=== PATIENT | male | born 1960 | race Caucasian/White ===

== ENCOUNTER 2023-05-07 08:23 | Outpatient (OUT) | payer OTHER, SELFPAY ==
[2023-05-07 09:55] LABS: Prostate Specific Antigen Dx <0.13 ng/mL (<=4.00)
== END 2023-05-07 08:24 | disposition home or self-care (01) ==
LOC: LAB 08:27
PROVIDERS: PCP Internal Medicine
DX: C61 Malignant neoplasm of prostate (principal)
CPT/HCPCS: 36415; 84153

== ENCOUNTER 2023-08-24 07:02 | Outpatient (OUT) | payer OTHER, SELFPAY ==
--- NOTE | 2023-08-24 | CT_ITS ---
The [address] [address] Patient Name: BASSAM SIMONS MRN: [id number] date: 1960 Sex: M Assigned Patient Location: LAB Current Patient Location: LAB Accession/Order Number: [id number] Exam Date: 08/24/2023 07:22 Report Date: 08/24/2023 07:50 At the request of: VERN GABRIEL Procedure: CT abdomen pelvis wo con CT abdomen pelvis wo con, 08/24/2023 7:22 AM EST INDICATION: History of renal cell carcinoma Z85.528 COMPARISON: Prior CT of abdomen dated 03/24/2022 TECHNIQUE: Axial images of the abdomen were obtained before administration of IV contrast. Multiplanar reformatted images were generated and reviewed as needed. Dose reduction techniques were achieved by using automated exposure control and/or adjustment of mA and/or kV according to patient size and/or use of iterative reconstruction technique. FINDINGS: The study is limited due to lack of injection of contrast. Lungs: The base of lungs is clear. No pleural effusion is noted. Liver and gallbladder: The liver and gallbladder are unremarkable. No enlargement of intra or extrahepatic biliary ducts. Genitourinary system: There is status post left nephrectomy and adrenalectomy. No suspicious edge lesion in the surgical bed is noted. No hydronephrosis or nephrolithiasis in the right kidney. Right renal cyst is stable in size with focus of hyperdensity likely due to hemorrhage. No abnormality of the urinary bladder is noted. Other solid abdominal organs: Right adrenal gland, pancreas, and spleen are unremarkable. Aorta: The infrarenal abdominal aorta is nonaneurysmal. Free fluid: There is no free fluid in the abdomen pelvis. Lymph node: No lymph node enlargement by size criteria is noted. Stomach and Bowel: No abnormality of the stomach is noted. No abnormality of small or large bowel is noted. Stable ventral hernias containing fat. Bone: There is no suspicious osteolytic or osteoblastic lesion. Stable sclerotic lesions likely bone islands, the largest one within the right pubic tubercle. CT/CT abdomen pelvis wo con IMPRESSION: Stable post left nephrectomy. No evidence of recurrence or metastasis. No significant interval change. Electronically authenticated by: DARLENE MCINTOSH Date: 08/24/2023 07:50
[2023-08-24 07:27] LABS: Anion Gap 13.8; BUN Creatinine Ratio 23.4; Calcium 8.9 mg/dL (8.5-10.1); Carbon Dioxide 28.7 mmol/L (21.0-32.0); Chloride 103 mmol/L (98-107); Estimated GFR (African America >60 (>=60); Estimated GFR (Non-African Ame 51 (>=60); Glucose 97 mg/dL (74-106); Potassium 4.5 mmol/L (3.5-5.1); Sodium 141 mmol/L (136-145)
[2023-08-24 08:32] LABS: Prostate Specific Antigen Dx <0.13 ng/mL (<=4.00)
--- OUTSIDE RECORDS SUMMARY | 2023-09-29 17:33 | XMS_ITS | CCD ---
Author Name Unknown Address [address] [place] [address] Organization [facility] Care Team Providers Care Paraprofessional Aide Name Role Phone FERNANDO PATTERSON Primary Care Physician Fernando Patterson II Primary Care Provider Fernando Patterson II Primary Care Provider BEAULIEU ., DR PORRAS Attending Unavailable BEAULIEU ., DR PORRAS Consulting Unavailable BEAULIEU ., DR PORRAS Admitting Unavailable CAIO, DR JAVIER Primary Care Unavailable ENGELER, DR PARISA Zheng Admitting Unavailable ENGELER, DR PARISA Zheng Attending Unavailable CAIO, DR JAVIER Primary Care Unavailable BEAULIEU ., DR PORRAS Consulting Unavailable ENGELER, DR PARISA Zheng Consulting Unavailable BEAULIEU ., DR PORRAS Attending Unavailable BEAULIEU ., DR PORRAS Consulting Unavailable BEAULIEU ., DR PORRAS Admitting Unavailable CAIO, DR JAVIER Primary Care Unavailable RACHAEL SIU Consulting Unavailable EMERALD, DR PARISA Zheng Admitting Unavailable EMERALD, DR PARISA Zheng Attending Unavailable CAIO, DR JAVIER Primary Care Unavailable BEAULIEU ., DR PORRAS Consulting Unavailable BEAULIEU ., DR PORRAS Admitting Unavailable BEAULIEU ., DR PORRAS Attending Unavailable CAIO, DR JAVIER Primary Care Unavailable EMERALD, DR PARISA Zheng Consulting Unavailable ZIESTELA, DR MOY [place] Consulting Unavailable EMERALD, DR PARISA Zheng Admitting Unavailable EMERALD, DR PARISA Zheng Attending Unavailable CAIO, DR JAVIER Primary Care Unavailable EMERALD, DR PARISA Zheng Consulting Unavailable Jayden Oliveros Unavailable Jayden Oliveros Attending Unavailable Jayden Oliveros Admitting Unavailable Fernando Patterson Primary Care Unavailable Nathen CORBIN Referring Unavailable FERNANDO PATTERSON II Primary Care Unavailable Nathen CORBIN Attending Unavailable Nathen CORBIN Referring Unavailable FERNANDO PATTERSON II Primary Care Unavailable Nathen CORBIN Attending Unavailable Hal BEAULIEU Attending Unavailable Hal BEAULIEU Attending Unavailable Hal BEAULIEU Attending Unavailable Medications Current Medications Medication Drug Class(es) Dates Sig (Normalized) Sig (Original) aspirin 81 mg oral capsule (1 source) Platelet Aggregation Inhibitor, Nonsteroidal Anti-inflammatory Drug Start: 07-25-2022 take 1 capsule by mouth every four hours aspirin 81 mg oral capsule 81 mg = 1 cap(s), Oral, q4hr Start Date: 07/25/22 Status: Ordered ciprofloxacin 500 mg oral tablet (1 source) Quinolone Antimicrobial Start: 07-09-2021 take 1 tablet by mouth every twelve hours ciprofloxacin 500 mg Tab 500 mg = 1 tab(s), Oral, q12hr, Refills(s) 0 Start Date: 07/09/21 Status: Ordered Flonase Allergy Relief (3 sources) Flonase Allergy Relief Active Multi Vitamin+ (2 sources) Start: 12-28-2020 Multi Vitamin+ Refill(s) 0 Start Date: 12/28/20 Status: Ordered Multivitamin preparation (3 sources) take 1 tablet by mouth once daily Multivitamin - 1 tablet Orally Once a day Active Vitamin D3 (1 source) Start: 07-25-2022 Vitamin D3 Start Date: 07/25/22 Status: Ordered Completed/Discontinued Medications Medication Drug Class(es) Dates Sig (Normalized) Sig (Original) amoxicillin 875 mg oral tablet (1 source) Penicillin-class Antibacterial Start: 03-19-2018 take 1 tablet by mouth every twelve hours Amoxicillin 875 MG 1 tablet Orally every 12 hrs for 10 day(s) Mar, Not-Taking escitalopram 5 mg oral tablet (8 sources) Serotonin Reuptake Inhibitor Start: 07-09-2021 escitalopram oxalate (LEXAPRO) 5 mg tablet irbesartan 150 mg oral tablet (8 sources) Angiotensin 2 Receptor Toy Start: 07-24-2021 irbesartan (AVAPRO) 150 mg tablet Start: 07-01-2021 take 1 mg by mouth once daily irbesartan 75 mg Tab mg tab(s), Oral, Daily, Refills(s) 0 Start Date: 07/01/21 Status: Ordered predniSONE 20 mg oral tablet (1 source) Start: 03-19-2018 predniSONE 20 MG 1 tablet twice daily x 2 days then 1 tablet daily x 2 days Orally as directed for 4 days Mar, Not-Taking tamsulosin hydrochloride 0.4 mg oral capsule (8 sources) alpha-Adrenergi c Toy Start: 01-22-2021 take 0.4 mg by mouth twice daily tamsulosin (FLOMAX) 0.4 mg Take 0.4 mg by mouth twice daily. 0 01/22/2021 Active take 1 capsule by [facility] every twenty-four hours Tamsulosin HCl 0.4 MG 1 capsule Orally Once a day Active Comment on above: Take 0.4 mg by mouth twice daily. Problems Active Problems Problem Classification Problem Date Documented Da te Episodic/Chronic Cancer of kidney and renal pelvis (9 sources) Malignant tumor of kidney; Translations: [Malignant neoplasm of unspecified kidney, except renal pelvis] Onset: 01-15-2022 Chronic Cancer of prostate (10 sources) Malignant neoplasm of prostate; Translations: [Malignant tumor of prostate] Onset: 01-15-2022 Chronic Genitourinary symptoms and ill-defined conditions (6 sources) Nocturia; Translations: [Nocturia] Onset: 07-25-2022 07-01-2021 Episodic Hyperplasia of prostate (6 sources) Benign prostatic hypertrophy with outflow obstruction; Translations: [Benign prostatic hyperplasia with lower urinary tract symptoms] Onset: 01-15-2022 Chronic Other diseases of kidney and ureters (2 sources) Renal mass 07-01-2021 Chronic Other diseases of kidney and ureters (1 source) Urinary tract obstruction; Translations: [Other obstructive and reflux uropathy] Onset: 07-25-2022 Episodic Other diseases of veins and lymphatics (2 sources) Varicocele 07-01-2021 Episodic Other male genital disorders (2 sources) Spermatocele 07-01-2021 Episodic Phlebitis; thrombophlebitis and thromboembolism (2 sources) Deep venous thrombosis 12-10-2020 Episodic Residual codes; unclassified (2 sources) Family history of prostate cancer 07-01-2021 Episodic Unclassified (2 sources) Asymptomatic microscopic hematuria 07-01-2021 Unclassified (1 source) Varicose veins of bilateral lower extremities with pain; Translations: [Varicose veins of bilateral lower extremities with pain] Onset: 02-25-2023 Varicose veins of lower extremity (7 sources) Varicose veins of lower extremity; Translations: [Varicose veins of bilateral lower extremities with other complications] Episodic Past or Other Problems Problem Classification Problem Date Documented Da te Episodic/Chronic Other screening for suspected conditions (not mental disorders or infectious disease) (5 sources) Raised prostate specific antigen; Translations: [Elevated prostate specific antigen [PSA]] Onset: 07-15-2022 07-11-2022 Episodic Results Test Name Value Interpretation Reference Range Facil ity Ambulatory Visit Summaryon 1 11-26-2022 Ambulatory Visit Summary JOSE COBOS :1960 Visit Date:09/25/2023 Ambulatory Visit Instructions Your Diagnosis Prostate cancer History of renal cell carcinoma BPH with urinary obstruction Asymptomatic microscopic hematuria Tests Performed Urnls Dip Stick Auto w/o Microscopy POC [address]40 CT Abdomen/Pelvis w/o Contrast -- Results Pending -- XR Abdomen 1 View -- Results Pending -- Please visit your patient portal for your results or contact your primary care physician. Your Care Team Attending Physician - Hal BEAULIEU MD Primary Care Physician - FERNANDO PATTERSON MD This Is Your Medications List tamsulosin (tamsulosin 0.4 mg Cap) Contact prescribing physician if questions or concerns aspirin (aspirin 81 mg oral capsule) cholecalciferol (Vitamin D3) escitalopram (escitalopram 5 mg oral tablet) irbesartan (irbesartan 75 mg Tab) multivitamin (Multi Vitamin+) Procedures Performed Radiation (10/08/2021), Transrectal needle biopsy of prostate (07/09/2021), Radical nephrectomy (01/02/2021), Cystoscopy (12/25/2020), Colonoscopy, Hernia repair, Tonsillectomy. Discharge Vitals Heart Rate (Peripheral) 69 Respiratory Rate 16 Blood Pressure 130/81 Height 187 cm Height 74 in Weight 107.2 kg Weight 235.84 lb BMI 30.66 What to do next Scheduled Follow-Up Appointments Thursday 8:30 AM EST With: Hal BEAULIEU MD Where: [facility] Patient Educationon 09-25-20 23 Patient Education Urology Benign Prostatic Hyperplasia Benign prostatic hyperplasia (BPH) is an enlarged prostate gland that is caused by the normal aging process. The prostate may get bigger as a man gets older. The condition is not caused by cancer. The prostate is a walnut-sized gland that is involved in the production of semen. It is located in front of the rectum and below the bladder. The bladder stores urine. The urethra carries stored urine out of the body. An enlarged prostate can press on the urethra. This can make it harder to pass urine. The buildup of urine in the bladder can cause infection. Back pressure and infection may progress to bladder damage and kidney (renal) failure. What are the causes? This condition is part of the normal aging process. However, not all men develop problems from this condition. If the prostate enlarges away from the urethra, urine flow will not be blocked. If it enlarges toward the urethra and compresses it, there will be problems passing urine. What increases the risk? This condition is more likely to develop in men older than 50 years. What are the signs or symptoms? Symptoms of this condition include: ? Getting up often during the night to urinate. ? Needing to urinate frequently during the day. ? Difficulty starting urine flow. ? Decrease in size and strength of your urine stream. ? Leaking (dribbling) after urinating. ? Inability to pass urine. This needs immediate treatment. ? Inability to completely empty your bladder. ? Pain when you pass urine. This is more common if there is also an infection. ? Urinary tract infection (UTI). How is this diagnosed? This condition is diagnosed based on your medical history, a physical exam, and your symptoms. Tests will also be done, such as: ? A post-void bladder scan. This measures any amount of urine that may remain in your bladder after you finish urinating. ? A digital rectal exam. In a rectal exam, your health care provider checks your prostate by putting a lubricated, gloved finger into your rectum to feel the back of your prostate gland. This exam detects the size of your gland and any abnormal lumps or growths. ? An exam of your urine (urinalysis). ? A prostate specific antigen (PSA) screening. This is a blood test used to screen for prostate cancer. ? An ultrasound. This test uses sound waves to electronically produce a picture of your prostate gland. Your health care provider may refer you to a specialist in kidney and prostate diseases (urologist). How is this treated? Once symptoms begin, your health care provider will monitor your condition (active surveillance or watchful waiting). Treatment for this condition will depend on the severity of your condition. Treatment may include: ? Observation and yearly exams. This may be the only treatment needed if your condition and symptoms are mild. ? Medicines to relieve your symptoms, including: ? Medicines to shrink the prostate. ? Medicines to relax the muscle of the prostate. ? Surgery in severe cases. Surgery may include: ? Prostatectomy. In this procedure, the prostate tissue is removed completely through an open incision or with a laparoscope or robotics. ? Transurethral resection of the prostate (TURP). In this procedure, a tool is inserted through the opening at the tip of the penis (urethra). It is used to cut away tissue of the inner core of the prostate. The pieces are removed through the same opening of the penis. This removes the blockage. ? Transurethral incision (TUIP). In this procedure, small cuts are made in the prostate. This lessens the prostate's pressure on the urethra. ? Transurethral microwave thermotherapy (TUMT). This procedure uses microwaves to create heat. The heat destroys and removes a small amount of prostate tissue. ? Transurethral needle ablation (TUNA). This procedure uses radio frequencies to destroy and remove a small amount of prostate tissue. ? Interstitial laser coagulation (ILC). This procedure uses a laser to destroy and remove a small amount of prostate tissue. ? Transurethral electrovaporization (TUVP). This procedure uses electrodes to destroy and remove a small amount of prostate tissue. ? Prostatic urethral lift. This procedure inserts an implant to push the lobes of the prostate away from the urethra. Follow these instructions at home: ? Take [id number] and prescription medicines only as told by your health care provider. ? Monitor your symptoms for any changes. Contact your health care provider with any changes. ? Avoid drinking large amounts of liquid before going to bed or out in public. ? Avoid or reduce how much caffeine or alcohol you drink. ? Give yourself time when you urinate. ? Keep all follow-up visits. This is important. Contact a health care provider if: ? You have unexplained back pain. ? Your symptoms do not get better with treatment. ? You develop side effects from the medicine (more content not included)... Normal [facility] Reminderson 09-25-2023 Reminders - From: Gay Ponce To: JW Beaulieu; Sent: 09/25/2023 09:16:14 EST Show up: 07/26/2024 10:15:00 EDT Subject: CXR and CT AP wo Due Date/Time: 08/26/2024 09:15:00 EST Reminder Message Pt needs CT AP wo con and CXR due to hx of renal cell carcinoma prior to 1 year appointment. Imaging to be done at [facility]. Patient will not have insurance, he may want to got to [facility] imaging in [place] , fax Pt has PSA order Normal [facility] Urology Office/Clinic Noteon 09-25-2023 Urology Office/Clinic Note Chief Complaint BPH with urinary obstruction HPI Staff 6m CT BMP & PSA DX: Prostate Cancer, Hx of Renal Cell Carcinoma, BPH, Nocturia & Microscopic Hematuria S/P EBRT 07/09/21 & Last Lupron 08/2021 & S/P Left Radical Nephrectomy 01/02/21 *Tamsulosin 0.4mg decreased from BID to QHS at time of last encounter CT 08/24/23 BMP 08/24/23 *BUN 33.0 & Crea 1.[address] Corbin 05/13/23 PSA 05/07/23- <0.13 08/24/23- <0.13 Dysuria: no Incomplete bladder emptying: no Hematuria: no Frequency: no Urgency: no Nocturia: 2-3x Stream: good steady Leaking: rare and only if he has too wait too long Post void dripping: no Wearing pads/ Depends: no Urge incontinence: no Stress incontinence: no Incontinence without Sensory Awareness: no Abdominal pain: no Flank pain: no Sexual complaints: no History of Present Illness Tests reviewed: reviewed UA, PSA, CT, BMP I have reviewed the previous health record information and history for this patient from Dr. Beaulieu. I have reviewed and verified the staff HPI to be accurate for this encounter. There have been no associated fever, chills, flank pain, or blood in the urine. Denies any urinary infections since last encounter. Review of Systems PHQ Score Initial Depression Screen Score: 0 SCORE ROS - Provider Constitutional: denies weight loss, denies hot flashes. Eyes: denies eye problems. Gastrointestinal: denies nausea, denies vomiting. Cardiovascular: denies chest pain or angina. Integumentary: no dryness Musculoskeletal: denies musculoskeletal symptoms. ENMT: denies otolaryngeal symptoms. Respiratory: no shortness of breath. Heme/Lymph: denies easy bleeding tendency, denies easy bruising tendency. Psychiatric: no confusion, no anxiety. Genitourinary: See HPI. Physical Exam Vitals & Measurements HR: 69(Peripheral) RR: 16 BP: 130/81 HT: 74 in HT: 187 cm WT: 107.2 kg WT: 235.84 lb BMI: 30.66 General Appearance: alert, no distress, well nourished, well developed male. Genitourinary: normal scrotum, normal testes, normal urethra, normal epididymis, normal vas deferens/spermatic cord. Flank Pain: none. Bladder: nonpalpable. Assessment/Plan Pt here with today 1. Prostate cancer (C61: Malignant neoplasm of prostate) PSA: 11/06/21 - 0.05 05/12/22 - 0.13 07/15/22 - 0.15 11/03/22 - <0.13 02/04/23 - <0.13 05/07/23 - <0.13 08/24/23 - <0.13 TRUS/Bx 07/09/21 - G6(3+3) x 2 and G7 (3+4) x 2. Completed radiation with Dr. Corbin 10/08/21. Last saw oncology 05/13/23. Last Lupron 08/2021. PSA remains stable. Will continue to monitor. -PSA in 1 year 2. History of renal cell carcinoma (Z85.528: Personal history of other malignant neoplasm of kidney) 01/03/22 - BUN 32. Crea 1.50 03/24/22 - BUN 42. Crea 1.41 02/04/23 - BUN 34. Crea 1.58 08/24/23 - BUN 33, Crea 1.41 S/P Left Radical Nephrectomy 01/02/21. 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 Renal US done on 01/03/22 was negative. CXR 01/03/22 - No acute disease. CT AP w con 03/24/22 - No acute disease. CXR 02/04/23 [facility] - WNL. CT AP wo con 08/24/23 stable post left nephrectomy. No evidence of recurrence or metastasis. No significant interval change. -Repeat CT AP wo & CXR in 1 year 3. BPH with urinary obstruction (N40.1: Benign prostatic hyperplasia with lower urinary tract symptoms) UA today negative for blood and infection. Taking Flomax 0.4mg, directed to decrease to qd last visit. Has been taking before bed. Voiding well. Strong, steady stream. Nocturia 2-3x per night depending on what he drinks. 4. Asymptomatic microscopic hematuria (R31.21: Asymptomatic microscopic hematuria) Chronic. UA today shows small. No gross hematuria. Discussed possible radiation changes. Call w/ visible blood in urine. Follow-up With When Contact Information HARVEY FRASER, Hal Astorga, URL [address] [place], [place] [id number]- Additional Instructions: 1 year w/ CXR, CT AP wo con, PSA Patient Education Benign Prostatic Hyperplasia I, Gay Ponce, personally scribed for Dr. Beaulieu on 09/25/2023 09:10:28. . Documentation recorded by the scribe, Gay Ponce, accurately reflects the services(s) I performed and decisions made by me. Authenticated by Dr. Beaulieu on 09/25/2023 09:21:14. Problem List/Past Medical History Ongoing Asymptomatic microscopic hematuria BPH with urinary obstruction Deep vein thrombosis Elevated PSA Family history of prostate cancer History of renal cell carcinoma Nocturia Prostate cancer Renal cell carcinoma Renal mass Spermatocele Varicocele Historical No qualifying data Procedure/Surgical History Radiation (10/08/2021), Transrectal needle biopsy of prostate (07/09/2021), Radical nephrectomy (01/02/2021), Cystoscopy (12/25/2020), Colonoscopy, Hernia repair, Tonsillectomy. Medications aspirin 81 mg oral capsule, 81 mg= (more content not included)... Normal [facility] Comment on above: Result Comment: Elec tronically Signed By: Hal BEAULIEU MD\.br\Date and Time Signed: 09/25/23 09:21 EST\.br\Electronically Co-Signed By: Gay Ponce\Date and Time Co-Signed: 09/25/23 09:12 EST Lab Reportson 09-08-2023 Lab Reports [id number] FF [facility] RAD - CT Reporton 09-02-2023 RAD - CT Report [id number] Normal [facility] Pre-Certification Formon Pre-Certification Form [id number] Normal [facility] Lab Reportson 08-25-2023 Lab Reports [id number] IFF Normal [facility] Reminderson 08-10-2023 Reminders - From: Nadya Cleaning To: JW Beaulieu; Sent: 03/02/2023 10:26:08 EDT Show up: 07/12/2023 10:25:00 EDT Subject: Ct scan Due Date/Time: 08/03/2023 10:26:00 EDT Reminder/Recall Jenna- Patient needs Ct scan w/o contrast, bun/creatinine prior to 08/24/23 appt. Patient wants [facility] ALSO PSA, CMP lab orders Appt r/s to 09/25/23. Order and office notes faxed to [facility] to do prior auth and call pt to sched.LG From: Elza Rouse MA (JW - Kenny Beaulieu) To: JW Beaulieu; Sent: 08/10/2023 10:51:51 EDT Show up: 09/07/2023 07:00:00 EST Subject: RE: Ct scan Due Date/Time: 09/14/2023 07:00:00 EST Normal [facility] Consultation Noteon 05-25-20 Consultation Note [id number]:127 [facility] (RADT[facility] ) JOSE COBOS ([id number]) 1960 M Date Time Provider Department 05/13/23 10:30 AM Nathen CORBIN During your visit today, we recorded the following information about you: Temperature Pulse Respiration Blood pressure 96.9 degrees 62/minute 16/minute 116/82 Weight 105.2 kg Janette Mcwilliams LPN 05/13/2023 10:43 AM Signed AUA= 5 Nathen Corbin MD 05/13/2023 10:43 AM Signed Radiation Oncology - Follow Up Note PATIENT NAME: Jose Cobos PATIENT DIAGNOSIS: Prostate adenocarcinoma, initial PSA 3.69, biopsy Shelly score 3 + 4 = 7 (grade group 2), clinical stage T1c, N0, M0, stage IIB [T1-T2, N0, M0, PSA <20, GG 2] (AJCC 8th ed.), s/p TRUS Random biopsy. RADIATION SUMMARY:DATES OF TREATMENT: 08/28/21-10/08/21 AREA TREATED: Prostate and SV DELIVERED DOSE: Prostate and SV: 7,000 cGy in 28 fractions, 2 Arcs, IMRT, 10MV with daily CBCT TOTAL: 7,000 cGy in 28 fractions ELAPSED TIME: 41 days. INTERVAL HISTORY: Doing well. Feels his bladder function has improved considerably. He is down to 1 Flomax daily. Denies other new problems or concerns. 11/12/22:Doing well denies any new problems or concerns. He has had several episodes of bright red blood on toilet paper with bowel movement. Denies rectal pain. Usually after firm bowel movement. He did have colonoscopy last summer. PSA HISTORY: PSA (ng/mL) Date Value 07/26/2021 3.69 PSA. (no units) Date Value 05/07/2023 <0.13 11/03/2022 <0.13 05/12/2022 <0.13 11/06/2021 0.05 ALLERGIES No Known Allergies escitalopram oxalate (LEXAPRO) 5 mg tablet irbesartan (AVAPRO) 150 mg tablet tamsulosin (FLOMAX) 0.4 mg Take 0.4 mg by mouth once daily. REVIEW OF SYSTEMS: D/N = 4-5 Hematuria: none Dysuria: none Incontinence: none Urgency: mild Catheter use: none Medications to aid urination: flomax - Total AUA Score: 5 Bowel movement frequency: 1/day Bowel movement quality: normal Blood per rectum: none PHYSICAL EXAM: BP 116/82 Pulse 62 Temp 36.1 ?C (96.9 ?F) Resp 16 Wt 105.2 kg (232 lb) SpO2 96% BMI 28.55 kg/m? KPS: 100 General appearance: Alert and oriented. No acute distress. Rectal exam def Extremities: No deformities, edema, skin discoloration, clubbing or cyanosis. Lymph Nodes: No cervical lymphadenopathy, No supraclavicular lymphadenopathy, No axillary lymphadenopathy. Skin: Skin color, texture, turgor normal, no suspicious rashes or lesions. ASSESSMENT/PLAN: 1. Prostate adenocarcinoma, initial PSA 3.69, biopsy Bernard score 3 + 4 = 7 (grade group 2), clinical stage T1c, N0, M0, stage IIB [T1-T2, N0, M0, PSA <20, GG 2] (AJCC 8th ed.), s/p TRUS Random biopsy. Patient continues to do very well with undetectable PSA. Denies other new problems or concerns. Continues close follow-up with Dr. Beaulieu. 2. Renal cell carcinoma status post left radical nephrectomy December 2020. Doing well. Has continued follow-up with Dr. Beaulieu. Signed by: Nathen Corbin MD cc: Fernando Patterson II, MD [address] [place] [address] Referring Provider: Nathen CORBIN [[id number]] Allergies As of Date: 05/13/2023 (No Known Allergies) Date Reviewed: 05/13/2023 Reviewed by: Janette Mcwilliams LPN - Fully Assessed Primary Visit Diagnosis:Malignant neoplasm of prostate (HCC) [C61] Order(s):PSA (OUTSIDE) [[id number]] Order #: [id number] Prescriptions as of 05/13/2023 - escitalopram oxalate (LEXAPRO) 5 mg tablet - irbesartan (AVAPRO) 150 mg tablet - tamsulosin (FLOMAX) 0.4 mg Take 0.4 mg by mouth once daily. Problem List As Of Date: 05/13/2023 (None) Visit Notes: >> Janette Mcwilliams LPN ThuMay 13, 2023 10:27 AM Status: Signed AUA= 5 Disposition: Return in about 6 months (around 11/13/2023). Follow-up and Disposition History for Encounter Date Provider Department Center 05/13/2023 [id number]-IROTYRONathen [facility]BIN [facility] Encounter Status:Closed by Nathen CORBIN on 05/13/23 Normal [facility] Ambulatory Visit Summaryon 0 03-02-2023 Ambulatory Visit Summary JOSE COBOS :1960 Visit Date:03/02/2023 Ambulatory Visit Instructions Your Diagnosis Prostate cancer History of renal cell carcinoma BPH with urinary obstruction Nocturia Asymptomatic microscopic hematuria Tests Performed Urnls Dip Stick Auto w/o Microscopy POC [id number] Your Care Team Attending Physician - HARVEY FRASER, Hal Astorga Primary Care Physician - CAIO FRASER, FERNANDO Ivy This Is Your Medications List Contact prescribing physician if questions or concerns aspirin (aspirin 81 mg oral capsule) cholecalciferol (Vitamin D3) escitalopram (escitalopram 5 mg oral tablet) irbesartan (irbesartan 75 mg Tab) multivitamin (Multi Vitamin+) tamsulosin (tamsulosin 0.4 mg Cap) Procedures Performed Radiation (10/08/2021), Transrectal needle biopsy of prostate (07/09/2021), Radical nephrectomy (01/02/2021), Cystoscopy (12/25/2020), Colonoscopy, Hernia repair, Tonsillectomy. Discharge Vitals Heart Rate (Peripheral) 80 Respiratory Rate 16 Blood Pressure 138/85 Height 187 cm Height 74 in Weight 108 kg Weight 237.6 lb BMI 30.88 What to do next Scheduled Follow-Up Appointments Thursday 9:45 AM EST With: Hal BEAULIEU MD Where: [facility] Lenore Vazquez [facility] Patient Educationon 03-02-20 23 Patient Education Oncology Cancer Screening for Men A cancer screening is a test or exam that checks for cancer. Your health care provider will recommend specific cancer screenings based on your age, medical history (including risk factors), and family history of cancer. Work with your health care provider to create a cancer screening schedule that protects your health. Who should have screening? All men should be considered for screening of certain cancers, including colorectal cancer, prostate cancer, lung cancer, and skin cancer. Your health care provider may recommend screenings for other types of cancer if: ? You had cancer before. ? You have a family member with cancer. ? You have abnormal genes that could increase the risk of cancer. ? You have risk factors for certain cancers, such as current or past use of tobacco products, or being overweight. When you should be screened for cancer depends on: ? Your age. ? Your medical history and your family's medical history. ? Certain lifestyle factors, such as smoking or other use of tobacco products. ? Environmental exposure, such as to asbestos. How is screening done? Colorectal cancer All adults should have screenings starting at age 45 and continuing until age 75. Your health care provider may recommend screening before age 45. You will have tests every 1?10 years, depending on your results and the type of screening test. People at increased risk should start screening at an earlier age. Talk with your health care provider about which screening test is right for you and how often you should be screened. Colorectal cancer screening looks for cancer or for growths called polyps that often form before cancer starts. Tests to look for cancer or polyps include: ? Colonoscopy or flexible sigmoidoscopy. For these procedures, a flexible tube with a small camera is inserted into the rectum. ? CT colonography. This test uses X-rays and a contrast dye to check the colon for polyps. If a polyp is found, you may need to have a colonoscopy so the polyp can be located and removed. Tests to look for cancer in the stool (feces) include: ? Guaiac-based fecal occult blood test (FOBT). This test can find blood in stool. It can be done at home with a kit. ? Fecal immunochemical test (FIT). This test can find blood in stool. For this test, you will need to collect stool samples at home. ? Stool DNA test. This test looks for blood in stool and any changes in DNA that can lead to colon cancer. For this test, you will need to collect a stool sample at home and send it to a lab. Prostate cancer Prostate cancer screening for men with average risk may start at age 50. Men with risk factors may need to be screened earlier, at ages 40?45. Talk with your health care provider about whether screening is right for you and, if so, how often you should be screened. Prostate cancer screening is done with blood tests and a digital rectal exam. During this exam, a health care provider uses a gloved finger to check prostate size. You may need to be screened for prostate cancer if: ? You have risk factors for prostate cancer, such as being or having a close family member with prostate cancer. ? You have had gene changes or a genetic condition that was passed on to you from a parent (inherited). These gene changes or genetic conditions include BRCA1 or BRCA2 gene mutations or Oconnor syndrome. ? You have symptoms of prostate cancer, such as problems urinating or problems getting or keeping an erection (erectile dysfunction). When you have been screened for prostate cancer, future screening may be recommended based on the results of your blood tests. Lung cancer Lung cancer screening is done with a CT scan that looks for abnormal changes in the lungs. Discuss lung cancer screening with your health care provider if you are 50?80 years old and if any of the following apply to you: ? You currently smoke. ? You used to smoke heavily. ? You have a smoking history of 1 pack of cigarettes a day for 20 years or 2 packs a day for 10 years. ? You have quit smoking within the past 15 years. You may need to be screened every year if you smoke heavily or if you used to smoke. Skin cancer Skin cancer screening is done by checking the skin for unusual moles or spots and any changes in existing moles. Your health care provider should check your skin for signs of skin cancer at every physical exam. You should check your skin every month and tell your health care provider right away if anything looks unusual. Men with a dryods-yirm-ohzvfz risk for skin cancer may want to see a food safety specialist (business development engineer) for an annual body check. What are the benefits of screening? Cancer screening is done to look for cancer in the very early stages, before it spreads and becomes harder to treat and before you would start to notice symptoms. Finding cancer early improves the chances of successful treatment. It ma (more content not included)... Normal [facility] Urology Office/Clinic Noteon 03-02-2023 Urology Office/Clinic Note Chief Complaint 6 month with labs and CXR HPI Staff 6m PSA, BUN/Cr & CXR DX: Prostate Cancer, Renal Cell Carcinoma, BPH. Nocturia & Microscopic Hematuria. S/P Radiation completed 09/[address] Corbin & Lt Radical Nephrectomy done 01/02/21 *Tamsulosin 0.4mg BID therapy. PSA done 11/03/22- <0.13 02/04/23- PSA <0.13 BUN 34.0 Cr 1.58 CXR done 02/04/23 Dysuria: no Incomplete bladder emptying: no Hematuria: no Frequency: no Urgency: no Nocturia: 2-3 for quite a while. Stream: good stream no straining or intermittency Leaking: no Post void dripping: no Wearing pads/ Depends: no Urge incontinence: no Stress incontinence: no Incontinence without Sensory Awareness: no Abdominal pain: no Flank pain: no Sexual complaints: no History of Present Illness Tests reviewed: reviewed UA, XR, labs. I have reviewed the previous health record information and history for this patient from Dr. Beaulieu. I have reviewed and verified the staff HPI to be accurate for this encounter. There have been no associated fever, chills, flank pain, or blood in the urine. Denies any urinary infections since last encounter. Review of Systems PHQ Score Initial Depression Screen Score: 0 ROS - Provider Constitutional: denies weight loss, denies hot flashes. Eyes: denies eye problems. Gastrointestinal: denies nausea, denies vomiting. Cardiovascular: denies chest pain or angina. Integumentary: no dryness Musculoskeletal: denies musculoskeletal symptoms. ENMT: denies otolaryngeal symptoms. Respiratory: no shortness of breath. Heme/Lymph: denies easy bleeding tendency, denies easy bruising tendency. Psychiatric: no confusion, no anxiety. Genitourinary: See HPI. Physical Exam Vitals & Measurements HR: 80(Peripheral) RR: 16 BP: 138/85 HT: 74 in HT: 187 cm WT: 108 kg WT: 237.6 lb BMI: 30.88 General Appearance: alert, no distress, well nourished, well developed male. Genitourinary: normal scrotum, normal testes, normal urethra, normal epididymis, normal vas deferens/spermatic cord. Flank Pain: none. Bladder: nonpalpable. Assessment/Plan Pt here with his today. 1. Prostate cancer (C61: Malignant neoplasm of prostate) PSA: 05/12/22 - 0.13 07/15/22 - 0.15 11/03/22 - <0.13 02/04/23 - <0.13 TRUS/Bx 07/09/21 - G6(3+3) x 2 and G7 (3+4) x 2. Completed radiation with Dr. Corbin 10/08/21. Last Lupron 08/2021. PSA remains stable. Will continue to monitor. -PSA in 6 mos. 2. History of renal cell carcinoma (Z85.528: Personal history of other malignant neoplasm of kidney) 01/03/22 - BUN 32. Cre 1.50. 03/24/22 - BUN 42. Cre 1.41. 02/04/23 - BUN 34. Cre 1.58. S/P Left Radical Nephrectomy 01/02/21. 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 Renal US done on 01/03/22 was negative. CXR 01/03/22 - No acute disease. CT AP w con 03/24/22 - No acute disease. CXR 02/04/23 [facility] - WNL. Reviewed XR and labs with pt. Pt wants to get CT scan before the end of the year when he switches insurance. Will get CT without con due to recent renal fxn levels. Follow up Aug [address] AP without con or sooner if needed. Pt understands and agrees with plan. 3. BPH with urinary obstruction (N40.1: Benign prostatic hyperplasia with lower urinary tract symptoms) UA today negative for blood and infection. Taking Tamsulosin 0.4 mg bid. Voiding well. Discussed decreasing Flomax to qd. -Decrease Flomax from bid to qhs. 4. Nocturia (R35.1: Nocturia) Improved. Now going about q4hr during the night when previously he was waking q2hr. 5. Asymptomatic microscopic hematuria (R31.21: Asymptomatic microscopic hematuria) Chronic. UA today shows trace-intact. No gross hematuria. Follow-up With When Contact Information Hal BEAULIEU MD, URL [facility] [address] [place] [address]- Additional Instructions: 6 mos PSA, CT, BMP Patient Education Cancer Screening for Men I, Joceline Berumen, personally scribed for Dr. Beaulieu on 03/02/2023 10:23:42. . Documentation recorded by the scribe, Joceline Berumen, accurately reflects the services(s) I performed and decisions made by me. Authenticated by Dr. Beaulieu on 03/02/2023 10:25:07. Problem List/Past Medical History Ongoing Asymptomatic microscopic hematuria BPH with urinary obstruction Deep vein thrombosis Elevated PSA Family history of prostate cancer History of renal cell carcinoma Nocturia Prostate cancer Renal cell carcinoma Renal mass Spermatocele Varicocele Historical No qualifying data Procedure/Surgical History Radiation (10/08/2021), Transrectal needle biopsy of prostate (07/09/2021), Radical nephrectomy (01/02/2021), Cystoscopy (12/25/2020), Colonoscopy, Hernia repair, Tonsillectomy. Medications aspirin 81 mg oral capsule, 81 mg= 1 cap(s), Oral, q4hr escitalopram 5 mg oral tablet, 5 mg= 1 tab(s), Oral, Daily irbesartan 75 mg (more content not included)... Normal [facility] Comment on above: Result Comment: Elec tronically Signed By: Hal BEAULIEU MD\.br\Date and Time Signed: 03/02/23 10:25 EDT\.br\Electronically Co-Signed By: Joceline Berumen\.br\Date and Time Co-Signed: 03/02/23 10:24 EDT US venous duplex MIRELA Abraham US venous duplex LE JACK [facility] Main [address] [address] Ultrasound Report Signed Patient: Jose Cobos MR#: [id number] : 1960 Acct:[id number] Age/Sex: 62 / M ADM Date: 02/25/23 Loc: Room: Type: [facility] Attending Dr: Jayden Oliveros MD Ordering Provider: Jayden Oliveros MD Date of Service: 02/25/23 US/US venous duplex LE BI: I83.813 Copies to: Jayden Oliveros MD BILATERAL LOWER EXTREMITY VENOUS DUPLEX INDICATION: Symptomatic varicose veins, bleeding varicose veins near left ankle. PROCEDURE: Color-flow duplex scanning is used to interrogate the deep venous system of the right and left lower extremities. The common femoral vein, femoral vein and popliteal vein show good compressibility with normal proximal and distal augmentation. The calf veins are compressible. US/US venous duplex LE BI IMPRESSION: NO EVIDENCE FOR DEEP VEIN THROMBOSIS OR PROXIMAL SUPERFICIAL THROMBOPHLEBITIS IN THE RIGHT OR LEFT LOWER EXTREMITY. No reflux was identified in the deep or superficial system, bilaterally. The greater saphenous vein was patent bilaterally from the groin to the ankle. Large perforators were identified, bilaterally. Impression dictated by: Bobby Anders MD02/27/2023 3:45 PM Dictation Location: [place] [address] Tech: Kandice Duncan Transcribed By: [facility] 02/27/23 1545 Dictated By: Bobby Anders MD 02/27/23 1544 Signed By: 02/27/23 1545 [facility] Lab Reportson 02-05-2023 Lab Reports [id number] D:127 [facility] BUNon 02-04-2023 Urea nitrogen [Mass/Vol] 34.0 mg/dL Critically high 7.0-18 .0 [facility] Comment on above: Performed By: #### B PAULA COX #### [facility] [address] [place] [address] Dr. Melvin Holliday CREATININEon 02-04-2023 Creatinine [Mass/Vol] 1.58 mg/dL Critically high 0.70-1.30 [facility] Comment on above: Performed By: #### B PAULA COX #### [facility] [address] [address] [address] Melvin Holliday EGFR-AF INDIAN 54 mL/min/1.73m2 Critically low >=60 [facility] Comment on above: Performed By: #### B UN, CREA #### [facility] [address] [place] [address] [address] Melvin Holliday EGFR-NON AF INDIAN 45 mL/min/1.73m2 Critically low >=60 [facility] Comment on above: Performed By: #### B UN, CREA #### [facility] [address] [address] [address] Melvin Holliday RAD - MISCon 02-04-2023 RAD - MISC [id number] :127 [facility] Physician Orderon 01-01-2023 Physician Order [id number]:127 [facility] Provider Letteron 12-31-2022 Provider Letter (Inserted Image. Loan ble to display) December 31, 20[address] CO[address]OS [address] [place] [id number] JOSE COBOS 1960 Dear Jose, We have been trying to reach you with no success. You have an appointment with Dr Beaulieu on 02/06/2023 which will need to be rescheduled since he/she will be out of the office that day. Please contact the office at the number listed below to get this appointment rescheduled at your earliest convenience. Thank you for your prompt attention to this matter. Sincerely, [facility] [address] [facility], [place] [address] [facility] Consultation Noteon 11-14-19 Consultation Note [id number]:127 [facility] CNOVon 11-12-2022 CNOV Office Visit (RADTSA ) JOSE COBOS ([id number]) 1960 M Date Time Provider Department 11/12/22 10:00 AM Nathen CORBIN During your visit today, we recorded the following information about you: Temperature Pulse Respiration Blood pressure 97.9 degrees 79/minute 16/minute 126/82 Weight 108.4 kg Nathen Corbin MD 11/12/2022 10:21 AM Signed Radiation Oncology - Follow Up Note PATIENT NAME: Jose Cobos PATIENT DIAGNOSIS: Prostate adenocarcinoma, initial PSA 3.69, biopsy Bernard score 3 + 4 = 7 (grade group 2), clinical stage T1c, N0, M0, stage IIB [T1-T2, N0, M0, PSA <20, GG 2] (AJCC 8th ed.), s/p TRUS Random biopsy. RADIATION SUMMARY:DATES OF TREATMENT: 08/28/21-10/08/21 AREA TREATED: Prostate and SV DELIVERED DOSE: Prostate and SV: 7,000 cGy in 28 fractions, 2 Arcs, IMRT, 10MV with daily CBCT TOTAL: 7,000 cGy in 28 fractions ELAPSED TIME: 41 days. INTERVAL HISTORY: Doing well denies any new problems or concerns. He has had several episodes of bright red blood on toilet paper with bowel movement. Denies rectal pain. Usually after firm bowel movement. He did have colonoscopy last summer. PSA HISTORY: PSA (ng/mL) Date Value 07/26/2021 3.69 PSA. (no units) Date Value 11/03/2022 <0.13 05/12/2022 <0.13 11/06/2021 0.05 ALLERGIES No Known Allergies escitalopram oxalate (LEXAPRO) 5 mg tablet irbesartan (AVAPRO) 150 mg tablet tamsulosin (FLOMAX) 0.4 mg Take 0.4 mg by mouth twice daily. REVIEW OF SYSTEMS: D/N = 4-02/09 Hematuria: none Dysuria: none Incontinence: none Urgency: mild Catheter use: none Medications to aid urination: flomax - Total AUA Score: 7 Bowel movement frequency: 1/day Bowel movement quality: normal Blood per rectum: none PHYSICAL EXAM: BP 126/82 Pulse 79 Temp 36.6 ?C (97.9 ?F) Resp 16 Wt 108.4 kg (239 lb) SpO2 97% BMI 29.41 kg/m? KPS: 100 General appearance: Alert and oriented. No acute distress. Abdomen: Normal abdominal exam, Abdomen soft, non-tender. No masses, organomegaly. Rectal exam def Extremities: No deformities, edema, skin discoloration, clubbing or cyanosis. Lymph Nodes: No cervical lymphadenopathy, No supraclavicular lymphadenopathy, No axillary lymphadenopathy. Skin: Skin color, texture, turgor normal, no suspicious rashes or lesions. ASSESSMENT/PLAN: 1. Prostate adenocarcinoma, initial PSA 3.69, biopsy Shelly score 3 + 4 = 7 (grade group 2), clinical stage T1c, N0, M0, stage IIB [T1-T2, N0, M0, PSA <20, GG 2] (AJCC 8th ed.), s/p TRUS Random biopsy. Doing well with undetectable PSA. He has had some very minimal rectal bleeding likely posttreatment related. He has had previous colonoscopy within the last year that was unremarkable. Should this continue consider reevaluation. Should it worsen consider cortisone suppositories. 2. Renal cell carcinoma status post left radical nephrectomy December 2020. Doing well. Has follow-up with urology. Signed by: Nathen Corbin MD cc: Fernando Patterson II, MD [address] [place] [address] Dr.Waters Janette Mcwilliams LPN 11/12/2022 10:21 AM Signed AUA=7 Referring Provider: Nathen CORBIN [[id number]] Allergies As of Date: 11/12/2022 (No Known Allergies) Date Reviewed: 11/12/2022 Reviewed by: Janette Mcwilliams LPN - Fully Assessed Reason for Visit: Prostate Cancer [590] Primary Visit Diagnosis:Malignant neoplasm of prostate (HCC) [C61] Order(s):PSA (OUTSIDE) [[id number]] Order #: [id number] PSA/PROSTSPECAG DIAG [SQPSA] Order #: [id number] FUTURE Prescriptions as of 11/12/2022 - escitalopram oxalate (LEXAPRO) 5 mg tablet - irbesartan (AVAPRO) 150 mg tablet - tamsulosin (FLOMAX) 0.4 mg Take 0.4 mg by mouth twice daily. Problem List As Of Date: 11/12/2022 (None) Visit Notes: >> Janette Mcwilliams, LUMBER DRIVER Wed Nov 12, 2022 10:00 AM Status: Signed AUA=7 Disposition: Return in about 6 months (around 05/12/2023). Follow-up and Disposition History for Encounter Date Provider Department Center 11/12/2022 [id number] CORBIN NATHALIE VALLEJO Encounter Status:Closed by Nathen CORBIN on 11/12/22 Normal [facility] Lab Reportson 11-07-2022 Lab Reports [id number] D:127 Normal [facility] PSA, FREE AND TOTAL RATIOon 07-18-2022 % Free PSA UPTCAL Normal [facility]spital Comment on above: Result Comment: Unab le to calculate result since non-numeric result obtained for component test. The table below lists the probability of prostate cancer for men with non-suspicious CHRISTY results and total PSA between 4 and 10 ng/mL, by patient age (Ro et al, KINJAL 1998, 279:1542). % Free PSA 50-64 yr 65-75 yr 0.00-10.00% 56% 55% 10.01-15.00% 24% 35% 15.01-20.00% 17% 23% 20.01-25.00% 10% 20% >25.00% 5% 9% Please note: Ro et al did not make specific recommendations regarding the use of percent free PSA for any other population of men. Performed By: #### P SAFREE ####[facility] [address], [place] [address]AvPoornima Holliday Prostate specific Ag [Mass/Vol] ng/mL Normal 0.0- 4.0 [facility] Comment on above: Result Comment: Aisha VILLASENOR methodology. . According to the [place] [employer], Serum PSA should decrease and remain at undetectable levels after radical prostatectomy. The AUA defines biochemical recurrence as an initial PSA value 0.2 ng/mL or greater followed by a subsequent confirmatory PSA value 0.2 ng/mL or greater. Values obtained with different assay methods or kits cannot be used interchangeably. Results cannot be interpreted as absolute evidence of the presence or absence of malignant disease. Performed By: #### P SAFREE ####[facility] [id number] [place] [address]Dr. Melvin Holliday PSA, Free <0.01 Normal N/A [facility]spital Comment on above: Result Comment: Aisha lam ECLIA methodology. Performed By: #### P SAFREE ####[facility] [address] [place] [address]Dr. Melvin Holliday BUNon 03-24-2022 Urea nitrogen [Mass/Vol] 42.0 mg/dL Critically high 7.0-18 .0 [facility] Comment on above: Performed By: #### C BILLY BUN #### [facility] [address] [place] [address] Dr. Melvin Holliday CREATININEon 03-24-2022 Creatinine [Mass/Vol] 1.41 mg/dL Critically high 0.70-1.30 [facility] Comment on above: Performed By: #### C BILLY, BUN #### [facility] [address] [place] [address] Dr. Melvin Holliday EGFR-AF INDIAN >60 Normal >=60 [facility] Comment on above: Performed By: #### C BILLY, BUN #### [facility] [address] [place] [address] Dr. Melvin Holliday EGFR-NON AF INDIAN 51 mL/min/1.73m2 Critically low >=60 [facility] Comment on above: Performed By: #### C BILLY, BUN #### [facility] [address] [place] [address] ABD/PELV W CONon 03-24-20 CT ABD/PELV W CON EXAMINATION: CT ABD/ PELV W CON HISTORY: Disorder of kidney and/or ureter ; history of left kidney cancer and nephrectomy; prostate cancer COMPARISON: CT abdomen pelvis 07/11/2021 TECHNIQUE: Axial, Coronal, and Sagittal images were created with IV contrast. Dose reduction techniques were achieved by using automated exposure control and/or adjustment of mA and/or kV according to patient size and/or use of iterative reconstruction technique. FINDINGS: LUNG BASES: No visible pulmonary or pleural disease. LIVER: No enlargement, atrophy, suspicious density, or significant focal lesion. BILIARY: No dilatation or calcification. PANCREAS: No lesion, fluid collection, or abnormal duct dilatation. SPLEEN: No enlargement or focal lesion. ADRENALS: Absent left adrenal gland. KIDNEYS: Left nephrectomy; no mass or abnormal lymph nodes within the renal fossa. Stable 2.3 cm right renal cyst. BOWEL/MESENTERY: No visible mass, obstruction, or bowel wall thickening. AORTA/VASCULAR: No aneurysm or dissection. RETROPERITONEUM: No mass or adenopathy. LYMPH NODES: No adenopathy. URINARY BLADDER: No visible focal wall thickening, lesion, or calculus. PELVIC ORGANS: Slightly prominent, but homogeneous appearance of the prostate. ABDOMINAL WALL: Small fat filled inguinal hernias bilaterally without strangulation. Tiny fat filled umbilical hernia without strangulation. Multiple supraumbilical ventral hernias containing fat, largest is 7.0 cm; no appreciable strangulation or bowel involvement. BONES: Stable sclerotic lesion versus bone island within the left superior pubic ramus. A few tiny dense foci scattered within the pelvis and proximal femurs, nonspecific but favoring bone islands. OTHER: Negative. IMPRESSION: 1. Prior left nephrectomy without evidence of recurrent or metastatic disease. 2. Several abdominal wall and bilateral inguinal fat filled hernias without strangulation or bowel involvement. 3. Stable scattered sclerotic lesions most suggestive of benign bone islands; unchanged since at least 12/27/2020. Electronically authenticated by: MOY ARAIZA Date: 2022-03-24 15:54 Normal [facility] XR CHEST 2 03-24-2022 XR CHEST 2 V EXAMINATION: XR CHES T 2 V HISTORY: Primary malignant neoplasm of kidney , shortness of breath COMPARISON: XR chest 01/03/2022 FINDINGS: LUNGS: No significant pulmonary parenchymal abnormalities. VASCULATURE: No increased pulmonary vasculature. PLEURA: No pneumothorax, effusion, or pleural thickening. CARDIAC: No cardiomegaly or cardiac silhouette abnormality. MEDIASTINUM: No visible mass or adenopathy. BONES: No fracture or visible bone lesion. OTHER: Negative. IMPRESSION: 1. No acute cardiopulmonary process or appreciable mass. Electronically authenticated by: MOY ARAIZA Date: 2022-03-24 08:07 Normal [facility] Complete Blood Count with Au to Diffon 10-07-2021 Basophils (Bld) [#/Vol] 0.02 10*3/uL Normal 0.00-0.20 [facility] Specialist Comment on above: Performed By: #### C AMBROSE, CMP #### [facility] [address], [place] [id number] Basophils/100 WBC (Bld) 0.4 % Normal N [facility] Specialist Comment on above: Performed By: #### C AMBROSE, CMP #### [facility] [address], [place] [id number] Eosinophils (Bld) [#/Vol] 0.17 10*3/uL Normal 0.02-0.5 0 [facility] Specialist Comment on above: Performed By: #### C AMBROSE, CMP #### [facility] [address], [place] [id number] Eosinophils/100 WBC (Bld) 3.3 % Normal [facility] Specialist Comment on above: Performed By: #### C AMBROSE, CMP #### [facility] [address], [place] [id number] Erythrocyte distribution wid th (RBC) [Ratio] 13.4 % Normal 11.0-15.0 [facility] dicde Specialist Comment on above: Performed By: #### C AMBROSE, CMP #### [facility] [address], [place] [id number] Hematocrit (Bld) [Volume fraction] 38.6 % Normal 38.5-50.0 [facility] dicde Specialist Comment on above: Performed By: #### C BCAD, CMP #### [facility] [address], [place] [id number] Hemoglobin (Bld) [Mass/Vol] 12.4 g/dL Low 13.0-17. 1 [facility] Specialist Comment on above: Performed By: #### C BCANikhil, CMP #### [facility] [address], [place] [id number] Lymphocytes (Bld) [#/Vol] 0.8 10*3/uL Low 0.9-3.9 [facility] Comment on above: Performed By: #### C BCANikhil, CMP #### [facility] [address], [place] [id number] Lymphocytes/100 WBC (Bld) 16.1 % Normal [facility] [place] Comment on above: Performed By: #### C AMBROSE, CMP #### [facility] [address], [place] [id number] MCH (RBC) [Entitic mass] 29.2 pg Normal 27.0-33.0 [facility] Comment on above: Performed By: #### C AMBROSE, CMP #### [facility] [address], [place] [id number] MCHC (RBC) [Mass/Vol] 32.1 g/dL Normal 32.0-36.0 [facility] Comment on above: Performed By: #### C AMBROSE, CMP #### [facility] [address], [place] [id number] MCV (RBC) [Entitic vol] 91 fL Normal 80-[address] [facility] Specialist Comment on above: Performed By: #### C AMBROSE, CMP #### [facility] [address], [place] [id number] Monocytes (Bld) [#/Vol] 0.4 10*3/uL Normal 0.2-0.9 [facility] Specialist Comment on above: Performed By: #### C BCANikhil, CMP #### [facility] [address], [place] [id number] Monocytes/100 WBC (Bld) 7.2 % Normal [facility] Specialist Comment on above: Performed By: #### C BCAD, CMP #### [facility] [address], [place] [id number] Neutrophils (Bld) [#/Vol] 3.7 10*3/uL Normal 1.5-7.8 [facility] Specialist Comment on above: Performed By: #### C BCANikhil, CMP #### [facility] [address], [place] [id number] Neutrophils/100 WBC (Bld) 72.0 % Normal [facility] Specialist Comment on above: Performed By: #### C BCAD, CMP #### [facility] [address], [place] [id number] Platelet mean volume (Bld) [Entitic vol] 9.20 fL Normal 7.50-12.50 [facility] Specialist Comment on above: Performed By: #### C AMBROSE, CMP #### [facility] [address], [place] [id number] Platelets (Bld) [#/Vol] 168 10*3/uL Normal 140-400 [facility] Specialist Comment on above: Performed By: #### C AMBROSE, CMP #### [facility] [address], [place] [id number] RBC (Bld) [#/Vol] 4.24 10*6/uL Normal 4.20-5.80 [facility] Specialist Comment on above: Performed By: #### C BCANikhil, CMP #### [facility] [address], [place] [id number] RDW-SD 44.7 fL Normal 37.0-50.0 [facility] Specialist Comment on above: Performed By: #### C AMBROSE, CMP #### [facility] [address], [place] [id number] WBC (Bld) [#/Vol] 5.2 10*3/uL Normal 3.8-11.0 [facility] Marine [employer]argo Inspector Comment on above: Performed By: #### C BCAD, CMP #### [facility] [address], [place] [id number] Comprehensive Metabolic Pane [facility] 10-07-2021 Albumin [Mass/Vol] 4.1 g/dL Normal 3.6-5.1 [facility] Specialist Comment on above: Performed By: #### C BCAD, CMP #### [facility] [address], [place] [id number] Albumin/Globulin [Mass ratio] 1.6 {ratio} Normal 1.0-2 .5 [facility] Specialist Comment on above: Performed By: #### C BCAD, CMP #### [facility] [address] [place], [place] [id number] ALP [Catalytic activity/Vol] 83 U/L Normal 40-129 [facility] [place] Comment on above: Performed By: #### C BCAD, CMP #### [facility] [address] [place], [place] [id number] ALT [Catalytic activity/Vol] 17 U/L Normal 9-46 [facility] Comment on above: Result Comment: 09/11 Female reference range changed. Performed By: #### C BCAD, CMP #### [facility] [address] [place], [place] [id number] Anion gap [Moles/Vol] 16 mmol/L Normal 12-20 [facility] Comment on above: Result Comment: Effe ctive 10/17/2019 reference range changed. Performed By: #### C BCAD, CMP #### [facility] [address] [place], [place] [id number] AST [Catalytic activity/Vol] 16 U/L Normal 10-40 [facility] [place] Comment on above: Performed By: #### C BCAD, CMP #### [facility] [address] [facility] [place] [place] [id number] BUN/CREA 19 Ratio Normal 6-22 [facility] [place] Comment on above: Performed By: #### C BCAD, CMP #### [facility] [address] [facility] [place] [place] [id number] Calcium [Mass/Vol] 9.7 mg/dL Normal 8.6-10.2 [facility] Comment on above: Performed By: #### C BCAD, CMP #### [facility] [address] [place], [place] [id number] Chloride [Moles/Vol] 102 mmol/L Normal 98-107 [facility] [place] [facility] Comment on above: Performed By: #### C BCAD, CMP #### [facility] [address] [place], [place] [id number] CO2 [Moles/Vol] 24 mmol/L Normal 20-31 [facility] [place] Comment on above: Performed By: #### C BCAD, CMP #### [facility] [address], [place] [id number] Creatinine [Mass/Vol] 1.3 mg/dL Normal 0.7-1.[address] [facility] Marine Cargo Inspector Comment on above: Performed By: #### C BCAD, CMP #### [facility] [address], [place] [id number] eGFRAA 66 mL/min/1.73m2 Normal >60 [facility] Specialist Comment on above: Performed By: #### C BCAD, CMP #### [facility] [address], [place] [id number] eGFRNAA 55 mL/min/1.73m2 Low >60 [facility] Marine Cargo Inspector Comment on above: Performed By: #### C BCAD, CMP #### [facility] [address], [place] [id number] Globulin (S) [Mass/Vol] 2.6 g/dL Normal 1.9-3.7 N [facility] Marine Cargo Inspector Comment on above: Performed By: #### C BCAD, CMP #### [facility] [address], [place] [id number] Glucose [Mass/Vol] 153 mg/dL High 65-99 Errol capone [place] [employer] Inspector Comment on above: Result Comment: For FASTING Glucose --- ADA reference ranges: Normal 65-99 mg/dl Prediabetes 100-125 Diabetes >/= 126 Performed By: #### C BCAD, CMP #### [facility] [address], [place] [id number] Potassium [Moles/Vol] 4.3 mmol/L Normal 3.5-5.5 [facility] Marine Cargo Inspector Comment on above: Performed By: #### C BCAD, CMP #### [facility] [address], [place] [id number] Protein [Mass/Vol] 6.7 g/dL Normal 6.1-8.1 Errol capone [place] [employer] Inspector Comment on above: Performed By: #### C BCAD, CMP #### [facility] [address], [place] [id number] Sodium [Moles/Vol] 138 mmol/L Normal 135-146 Errol capone [place] [employer] C[employer] Inspector Comment on above: Performed By: #### C BCAD, CMP #### [facility] [address], [place] [id number] TBIL <0.3 Normal [facility] Marine [employer] Inspector Comment on above: Performed By: #### C BCAD, CMP #### [facility] [address], [place] [id number] Urea nitrogen [Mass/Vol] 25 mg/dL Normal 7-25 [facility] Marine Cargo Inspector Comment on above: Performed By: #### C BCAD, CMP #### [facility] [address], [place] [id number] SURGICAL PATH REPORTon 01-09 SURGICAL PATH REPORT [facility] Department of Pathology [address] [place] [id number] Name: JOSE COBOS : 1960 [facility] [id number] Number: Gender: Male Location: [facility] Admit 60 years Attending HAL BEAULIEU Age: Provider: Ordering HAL BEAULIEU Provider: Consulting: Surgical Pathology Report ACCESSION: COLLECTED DATE/TIME: RECEIVED DATE/TIME: PATHOLOGIST: [id number] 01/02/2021 16:30 EDT 01/03/2021 12:19 EDT VINCE FRASER, LA NENA MOORE Final Diagnosis Report for [facility] [place] (A) LEFT KIDNEY, RADICAL NEPHRECTOMY: - CLEAR CELL RENAL CELL CARCINOMA, WHO / ISUP GRADE 3. Immunohistochemical stains are as follows: CD10: Positive in neoplasm CD117: Negative in neoplasm CK7: Positive in neoplasm, patchy PAX-8: Positive in neoplasm RCC: Positive in neoplasm Vimentin: Positive in neoplasm (B) PERIHILAR LYMPH NODE, EXCISION: - ONE (1) LYMPH NODE, NEGATIVE FOR METASTASIS. CANCER CASE SUMMARY Procedure Radical nephrectomy Specimen Laterality Left Tumor Site Lower pole Tumor Size Print Date01/09/2021 10:02 EDT Number: Time: [facility] Department of Pathology [address] [place] [id number] Name: JOSE COBOS : 1960 [employer] [id number] Number: Gender: Male Location: [facility] Admit 60 years Attending HAL BEAULIEU Age: Provider: Ordering HAL BEAULIEU Provider: Consulting: Surgical Pathology Report ACCESSION: COLLECTED DATE/TIME: RECEIVED DATE/TIME: PATHOLOGIST: [id number] 01/02/2021 16:30 EDT 01/03/2021 12:19 EDT VINCE FRASER, [place] NENA MOORE Final Diagnosis Greatest dimension: 8.6 cm Tumor Focality Unifocal Histologic Type Clear cell renal cell carcinoma Sarcomatoid Features Not identified Rhabdoid Features Not identified Histologic Grade (WHO / ISUP Grade) G3: Nucleoli conspicuous and eosinophilic at 100x magnification Tumor Necrosis Not identified Tumor Extension Tumor limited to kidney Margins Uninvolved by invasive carcinoma Lymphovascular Invasion Not identified Regional Lymph Nodes Print Date/ 01/09/2021 10:02 EDT Number: Time: [facility] Department of Pathology [address] [place] [id number] Name: JOSE COBOS : 1960 [employer] [id number] Number: Gender: Male Location: [facility] Admit 60 years Attending HAL BEAULIEU Age: Provider: Ordering HAL BEAULIEU Provider: Consulting: Surgical Pathology Report ACCESSION: COLLECTED DATE/TIME: RECEIVED DATE/TIME: PATHOLOGIST: [id number] 01/02/2021 16:30 EDT 01/03/2021 12:19 EDT VINCE FRASER, LA NENA MOORE Final Diagnosis Number of Lymph Nodes Involved: 0 Number of Lymph Nodes Examined: 1 Pathologic Stage Classification ( pTNM, AJCC 8 th Edition) Primary Tumor ( pT) pT2a: Tumor >7 cm but <10 cm in greatest dimension, limited to the kidney Pathologic Findings in Nonneoplastic Kidney Focal chronic interstitial inflammation LA NENA CLARKE PATHOLOGIST (Electronic Signature) Date Verified 01/09/2021 CL Clinical Data PRE-OP DIAGNOSIS: Not specified POST-OP DIAGNOSIS: Left renal mass PROCEDURES: Left radical nephrectomy SPECIMEN: (A) Left kidney (B) Perihilar lymph node / Inpatient medical/surgical Gross Description (A) Labeled left kidney. Received in formalin is a left kidney surrounded by an irregular embolus of fibroadipose tissue. Overall the specimen measures 24.5 x 14.5 x 7.5 cm. In the superior fibroadipose tissue is a grossly identifiable adrenal gland. It is miranda orange Print Date/ 01/09/2021 10:02 EDT Number: Time: [facility] Department of Pathology [address] [place] [phone] Name: JOSE COBOS : 1960 [facility] [id number] Number: Gender: Male Location: [facility] Admit 60 years Attending HAL BEAULIEU Age: Provider: Ordering HAL BEAULIEU Provider: Consulting: Surgical Pathology Report ACCESSION: COLLECTED DATE/TIME: RECEIVED DATE/TIME: PATHOLOGIST: [id number] 01/02/2021 16:30 EDT 01/03/2021 12:19 EDT VINCE FRASER, LA NENA MOORE Gross Description and measures 4.1 x 1.5 x 1.4 cm. There is a segment of ureter present. It consists of a cylindrical structure which is miranda pink. The included segment measures 4.7 cm in length and has (more content not included)... Normal [facility] Comment on above: Performed By: #### [id number] #### [facility] Services [address] [place], [place] [id number] [employer] Taper: Malcolm Jiménez MD Vital Signs Date Time Vital Sign Value Performing Clinician Facility 03-10-2023 10:15-0400 Body height 187.96 cm Jayden Oliveros Other [facility] Other 03-10-2023 10:15-0400 Body mass index (BMI) [Ratio] 29.53 kg/m2 Jayden Oliveros Other [facility] Other 03-10-2023 10:15-0400 Body temperature 97.8 [degF] Jayden Oliveros Other [facility] Other 03-10-2023 10:15-0400 Body weight 104.33 kg Jayden Oliveros Other [facility] Other 03-10-2023 10:15-0400 Diastolic blood pressure 78 mm[Hg] Jayden Oliveros Other [facility] Other 03-10-2023 10:15-0400 SaO2% (BldA) [Mass fraction] 97 % Jayden Oliveros Other [facility] Other 03-10-2023 10:15-0400 Systolic blood pressure 128 mm[Hg] Jayden Oliveros Other [facility] Other 02-10-2023 12:00-0400 Body height 187.96 cm Jayden Funezrer Other [facility] Other 02-10-2023 12:00-0400 Body mass index (BMI) [Ratio] 29.27 kg/m2 Jayden Funezrer Other [facility] Other 02-10-2023 12:00-0400 Body temperature 97 [degF] Jayden Mitchellehrer Other [facility] Other 02-10-2023 12:00-0400 Body weight 103.42 kg Jayden Funezrer Other [facility] Other 02-10-2023 12:00-0400 Diastolic blood pressure 64 mm[Hg] Jaydensera Funezrer Other [facility] Other 02-10-2023 12:00-0400 Respiratory rate 18 /min Jayden Francheskar Other [facility] Other 02-10-2023 12:00-0400 SaO2% (BldA) [Mass fraction] 98 % Jaydensera Funezrer Other [facility] Other 02-10-2023 12:00-0400 Systolic blood pressure 112 mm[Hg] Jayden Buehrer Other [facility] Other 11-12-2022 09:56-0500 Body temperature 97.9 [degF] LATANYA Corbin MD Work Phone: [facility] 11-12-2022 09:56-0500 Body weight 108.41 kg LATANYA Corbin MD Work Phone: [facility] 11-12-2022 09:56-0500 Diastolic blood pressure 82 mm[Hg] LATANYA Corbin MD Work Phone: [facility] 11-12-2022 09:56-0500 Heart rate 79 /min LATANYA Corbin MD Work Phone: [facility] 11-12-2022 09:56-0500 Respiratory rate 16 /min LATANYA Corbin MD Work Phone: [facility] 11-12-2022 09:56-0500 SaO2% (BldA) [Mass fraction] 97 % LATANYA Corbin MD Work Phone: [facility] 11-12-2022 09:56-0500 Systolic blood pressure 126 mm[Hg] LTAANYA Corbin MD Work Phone: [facility] 07-25-2022 08:12-0400 Blood Pressure Location Hal BEAULIEU [facility] 07-25-2022 08:12-0400 Diastolic blood pressure 88 mm[Hg] Hal BEAULIEU [facility] 07-25-2022 08:12-0400 Heart rate 61 /min Hal BEAULIEU [facility] 07-25-2022 08:12-0400 Systolic blood pressure 113 mm[Hg] Hal BEAULIEU [facility] 05-13-2022 15:27-0400 Body temperature 97.3 [degF] LATANYA Corbin MD Work Phone: [facility] 05-13-2022 15:27-0400 Body weight 108.86 kg LATANYA Corbin MD Work Phone: [facility] 05-13-2022 15:27-0400 Diastolic blood pressure 81 mm[Hg] LATANYA Corbin MD Work Phone: [facility] 05-13-2022 15:27-0400 Heart rate 62 /min LATANYA Corbin MD Work Phone: [facility] 05-13-2022 15:27-0400 Respiratory rate 16 /min LATANYA Corbin MD Work Phone: [facility] 05-13-2022 15:27-0400 SaO2% (BldA) [Mass fraction] 100 % LATANYA Corbin MD Work Phone: [facility] 05-13-2022 15:27-0400 Systolic blood pressure 119 mm[Hg] LATANYA Corbin MD Work Phone: [facility] 01-15-2022 14:29-0400 Blood Pressure Location Halmarni BEAULIEU [facility] 01-15-2022 14:29-0400 Diastolic blood pressure 79 mm[Hg] Halmarni BEAULIEU [facility] 01-15-2022 14:29-0400 Heart rate 67 /min Halmarni BEAULIEU [facility] 01-15-2022 14:29-0400 Systolic blood pressure 128 mm[Hg] Halmarni BEAULIEU [facility] Encounters Encounter Date Encounter Type Care Provider Facility Start: 09-30-2024 ambulatory Hal Russelli ty:[facility] Start: 09-25-2023 End: 09-26-2023 ambulatory Hal BEAULIEU Facility:[facility] Start: 05-13-2023 End: 05-13-2023 ambulatory Nathen CORBIN Facility:[facility] Start: 04-03-2023 (Sclerother) Sclerotherapy Jayden Oliveros [facility] Vascular Surgery Start: 04-03-2023 End: 04-03-2023 ambulatory Jayden Oliveros Other [facility] Other Start: 03-10-2023 End: 03-10-2023 ambulatory Jayden Oliveros Other [facility] Other Start: 03-10-2023 Office outpatient vi sit 25 minutes Jayden Oliveros [facility] Vascular Surgery Start: 03-02-2023 End: 03-03-2023 ambulatory Hal BEAULIEU Facility:[facility] Start: 02-25-2023 End: 02-25-2023 ambulatory Jayden Oliveros Facility:[facility] Start: 02-10-2023 End: 02-10-2023 ambulatory Jayden Oliveros Other [facility] Other Start: 02-10-2023 Office outpatient ne w 45 minutes Jayden Oliveros [facility] Vascular Surgery Start: 02-04-2023 End: 02-05-[address] HAL BEAULIEU . Facility:[facility] Start: 11-13-[address] PARISA CORBIN Fac ility:[facility] Start: 11-12-2022 End: 11-12-2022 ambulatory Nathen CORBIN Facility:[facility] Start: 11-12-2022 End: 11-12-2022 Patient encounter procedure Nathen Corbin MD Work Phone: Radiation Oncology Comment on above: Malignant neoplasm o f prostate (HCC) (Primary Dx) Start: 11-03-2022 End: 11-04-[address] PARISA CORBIN Facility: Start: 07-25-2022 End: 07-25-2022 Patient encounter procedure Hal BEAULIEU [facility] Start: 07-15-2022 End: 07-16-[address] HAL BEAULIEU . Facility:[facility] Start: 05-13-2022 End: 05-13-2022 Patient encounter procedure Nathen Corbin MD Work Phone: Radiation Oncology Comment on above: Malignant neoplasm o f prostate (HCC) (Primary Dx) Start: 05-12-2022 End: 05-13-[address] PARISA CORBIN Facility:[facility] Start: 05-12-2022 Telephone encounter G Cory Corbin MD Work Phone: Radiation Oncology Comment on above: Future Appointment Start: 03-24-2022 End: 03-25-[address] HAL BEAULIEU . Facility:[facility] Start: 01-15-2022 End: 01-15-2022 Patient encounter procedure Hal BEAULIEU [facility] Procedures Date Procedure Procedure Detail Performing Clinician Start: 02-04-[address] KEISHA BEAULIEU . Comment on above: Performed By: #### P SAD #### [facility] [address] [address] [address] Melvin Holliday Start: 11-03-2022 End: 11-03-2022 PSA screening [facility] Provider Comment on above: Performed By: #### P SAD #### [facility] [address] [address] [address] Melvin Holliday Start: 07-15-[address] KEISHA BEAULIEU . Comment on above: Performed By: #### P SASC #### [facility] [address] [address] [address] Melvin Holliday Start: 05-13-2022 Adult depression scr eening assessment LATANYA Corbin MD Work Phone: Start: 05-12-2022 End: 05-12-2022 PSA screening [facility] Provider Comment on above: Performed By: #### P SAD ####[facility] [id number] [address]Dr. Melvin Holliday Start: 08-06-2021 Adult depression scr eening assessment LATANYA Corbin MD Work Phone: Start: 07-09-2021 Transrectal biopsy of prostate Hal BEAULIEU Start: 01-02-2021 Radical nephrectomy Kiya BEAULIEU Start: 12-25-2020 Cystoscopy Hal SAMANIEGO Colonoscopy Hal BEAULIEU Hernia repair Hal BEAULIEU Tonsillectomy Hal BEAULIEU Plan of Treatment Date Care Activity Detail Author Start: 11-03-2027 PROSTATE CANCER SCREENING DISCUSSION PROSTATE CANCER SCREENING DISCUSSION [facility] Start: 05-12-2027 PROSTATE CANCER SCREENING DISCUSSION PROSTATE CANCER SCREENING DISCUSSION [facility] Start: 11-06-2026 PROSTATE CANCER SCREENING DISCUSSION PROSTATE CANCER SCREENING DISCUSSION [facility] Start: 05-13-2023 Adult depression screening assessment DEPRESSION SCREENING [facility] Start: 05-12-2023 End: 07-12-2023 Prostate specific Ag [Mass/volume] in Serum or Plasma PSA/PROSTSPECAG DIAG Lab Routine Malignant neoplasm of prostate (HCC) Expected: 05/12/2023, Expires: 07/12/2023 [facility] Work Phone: Comment on above: Expected: 05/12/2023 , Expires: 07/12/2023 Start: 11-13-2022 End: 01-13-2023 Prostate specific Ag [Mass/volume] in Serum or Plasma PSA/PROSTSPECAG DIAG Lab Routine Malignant neoplasm of prostate (HCC) Expected: 11/13/2022, Expires: 01/13/2023 [facility] Work Phone: Comment on above: Expected: 11/13/2022 , Expires: 01/13/2023 Start: 10-12-2022 DEPRESSION ASSESSMENT DEPRESSION ASS ESSMENT [facility] Start: 08-06-2022 Adult depression screening assessment DEPRESSION SCREENING [facility] Start: 06-30-2022 COVID-19 VACCINE (5 - Booster for Moderna series) COVID-19 VACCINE (5 - Booster for Moderna series) [facility] Start: 06-12-2022 Influenza vaccination INFLUENZA (#1) [facility] Start: 07-15-2021 COVID-19 VACCINE (3 - Booster for Moderna series) COVID-19 VACCINE (3 - Booster for Moderna series) [facility] Start: 03-03-2016 SHINGRIX VACCINE (2 of 3) SHINGRIX V ACCINE (2 of 3) [facility] Start: 2006 COLOGUARD (FIT-DNA) COLOGUARD (FIT-D NA) [facility] Start: 2006 Colonoscopy COLONOSCOPY [facility] Start: 2006 COLORECTAL CANCER SCREENING COLORECTAL CANCER SCREENING [facility] Start: [address] COLONOGRAPHY [facility] Start: 2006 DIABETES SCREEN DIABETES SCREEN [facility] Start: 2006 FECAL OCCULT BLOOD FECAL OCCULT BLOO D [facility] Start: 2006 SIGMOIDOSCOPY SIGMOIDOSCOPY [facility] Start: 1996 LIPID SCREEN LIPID SCREEN [facility] Start: 1980 Urine microalbumin profile DTAP,TDAP,TD (1 - Tdap) [facility] Start: 1979 HEPATITIS C SCREENING HEPATITIS C SC REENING [facility] Start: 1979 HIV SCREENING HIV SCREENING [facility] Immunizations Immunization Date Immunization Notes Care Provider Tere epstein 06-26-2022 influenza virus vaccine, unspecified formulation aHl BEAULIEU [facility] 05-05-2022 SARS-CoV-2 (COVID-19 ) mRNA-1273 vaccine Hal BEAULIEU [facility] 04-04-2022 zoster vaccine recombinant Hal BEAULIEU [facility] 06-24-2021 influenza virus vaccine, unspecified formulation Hal BEAULIEU [facility] 06-24-2021 influenza, injectabl e, quadrivalent, preservative free LATANYA Corbin MD Work Phone: [facility] 02-22-2021 SARS-CoV-2 (COVID-19 ) Ad26 vaccine, recombinant Hal BEAULIEU [facility] 02-12-2021 SARS-CoV-2 (COVID-19 ) mRNA-1273 vaccine Hal BEAULIEU [facility] Comment on above: Result Comment: 2021: [id number] 01-25-2021 SARS-CoV-2 (COVID-19 ) mRNA-1273 vaccine Hal BEAULIEU [facility] Comment on above: Result Comment: 2nd dose in 02/202101-15-2021 SARS-CoV-2 (COVID-19 ) mRNA-1273 vaccine Hal BEAULIEU [facility] Comment on above: Result Comment: 2021: [id number] 06-20-2020 influenza virus vacc ine, unspecified formulation Hal BEAULIEU [facility] 06-20-2020 influenza, injectabl e, quadrivalent, preservative free LATANYA Corbin MD Work Phone: [facility] 06-16-2019 influenza virus vacc ine, unspecified formulation Hal BEAULIEU [facility] 06-16-2019 Influenza, injectabl e, Madin [employer] Canine Kidney, preservative free, quadrivalent LATANYA Corbin MD Work Phone: [facility] 07-09-2018 influenza virus vacc ine, unspecified formulation Hal [employer] [facility] 07-09-2018 influenza, injectabl e, quadrivalent, preservative free LATANYA Corbin MD Work Phone: [facility] 07-15-2017 influenza virus vacc ine, unspecified formulation Hal BEAULIEU [facility] 07-15-2017 influenza, injectabl e, quadrivalent, contains preservative NA Emerald FRASER Work Phone: [facility] 06-28-2017 influenza virus vacc ine, unspecified formulation Hal BEAULIEU [facility] 06-28-2017 influenza, injectabl e, quadrivalent, preservative free LATANYA Corbin MD Work Phone: [facility] 07-06-2016 influenza virus vacc ine, unspecified formulation Hal BEAULIEU [facility] 07-06-2016 influenza, seasonal, injectable, preservative free NA Emerald FRASER Work Phone: [facility] 01-07-2016 zoster vaccine, live NA Naveen mccall MD Work Phone: [facility] Payers Date Payer Category Payer Private Health Insurance [facility] [employer] [id number] 2020-Present [address] [address] [place] [address] PPO [id number] 2020 Private Health Insurance [facility] [employer] [id number] 2020-Present [address] [address] [place] [address] PPO [id number] 1961 Unknown [id number] 1961 Unknown [id number] [id number] 1961 Unknown [id number]. [id number] 1961 Unknown [id number]. [id number] 1961 Unknown [id number]. [id number] 1961 Unknown [id number]. [id number] 1961 Unknown [id number]. [id number] 1961 Unknown [id number] [id number]. [id number] 1961 Unknown [id number] [id number] 1959 Self-pay 1959 Unknown [id number] 1959 Unknown [id number] Unknown [id number] [id number] Social History Date Type Detail Facility Start: 01-15-2022 End: 11-12-2022 Tobacco smoking status Never smoked tobacco (finding) [facility] [place] Tobacco smoking status Never [facility] Sex Assigned At Male [facility] Start: 07-26-2021 End: 11-12-2022 Tobacco use and exposure Smokeless tobacco non-user [facility] Start: 10-07-2021 End: 11-12-2022 Alcohol intake Ex-drinker (finding) [facility] Start: 1960 Sex Assigned At Male [facility] Start: 05-03-2022 End: 05-13-2022 Exposure to SARS-CoV-2 (event) Not sure [facility] Functional Status Date Assessment Result Facility 07-25-2022 Functional Status N/A [facility] Clinical Notes 01-15-2022 to 05-13-2023 Note Date & Type Note Facility 05-13-2023 Note HNO ID: [id number] Author: Nathen Corbin MD Service: ? Author Type: Physician Type: Progress Notes Filed: 05/13/2023 10:43 AM Note Text: Radiation Oncology - Follow Up Note PATIENT NAME: Jose Cobos PATIENT DIAGNOSIS: Prostate adenocarcinoma, initial PSA 3.69, biopsy Bernard score 3 + 4 = 7 (grade group 2), clinical stage T1c, N0, M0, stage IIB [T1-T2, N0, M0, PSA <20, GG 2] (AJCC 8th ed.), s/p TRUS Random biopsy. RADIATION SUMMARY:DATES OF TREATMENT: 08/28/21-10/08/21 AREA TREATED: Prostate and SV DELIVERED DOSE: Prostate and SV: 7,000 cGy in 28 fractions, 2 Arcs, IMRT, 10MV with daily CBCT TOTAL: 7,000 cGy in 28 fractions ELAPSED TIME: 41 days. INTERVAL HISTORY: Doing well. Feels his bladder function has improved considerably. He is down to 1 Flomax daily. Denies other new problems or concerns. 11/12/22:Doing well denies any new problems or concerns. He has had several episodes of bright red blood on toilet paper with bowel movement. Denies rectal pain. Usually after firm bowel movement. He did have colonoscopy last summer. PSA HISTORY: PSA (ng/mL) Date Value 07/26/2021 3.69 PSA. (no units) Date Value 05/07/2023 <0.13 11/03/2022 <0.13 05/12/2022 <0.13 11/06/2021 0.05 ALLERGIES No Known Allergies escitalopram oxalate (LEXAPRO) 5 mg tablet irbesartan (AVAPRO) 150 mg tablet tamsulosin (FLOMAX) 0.4 mg Take 0.4 mg by mouth once daily. REVIEW OF SYSTEMS: D/N = 4-02/09 Hematuria: none Dysuria: none Incontinence: none Urgency: mild Catheter use: none Medications to aid urination: flomax - Total AUA Score: 5 Bowel movement frequency: 1/day Bowel movement quality: normal Blood per rectum: none PHYSICAL EXAM: BP 116/82 Pulse 62 Temp 36.1 ?C (96.9 ?F) Resp 16 Wt 105.2 kg (232 lb) SpO2 96% BMI 28.55 kg/m? KPS: 100 General appearance: Alert and oriented. No acute distress. Rectal exam def Extremities: No deformities, edema, skin discoloration, clubbing or cyanosis. Lymph Nodes: No cervical lymphadenopathy, No supraclavicular lymphadenopathy, No axillary lymphadenopathy. Skin: Skin color, texture, turgor normal, no suspicious rashes or lesions. ASSESSMENT/PLAN: 1. Prostate adenocarcinoma, initial PSA 3.69, biopsy Bernard score 3 + 4 = 7 (grade group 2), clinical stage T1c, N0, M0, stage IIB [T1-T2, N0, M0, PSA <20, GG 2] (AJCC 8th ed.), s/p TRUS Random biopsy. Patient continues to do very well with undetectable PSA. Denies other new problems or concerns. Continues close follow-up with Dr. Beaulieu. 2. Renal cell carcinoma status post left radical nephrectomy December 2020. Doing well. Has continued follow-up with Dr. Beaulieu. Signed by: Nathen Corbin MD cc: Fernando Patterson II, MD [address] [place] [address] [facility] 03-10-2023 Evaluation note Encounter Date Diagnosis Assessment Notes February, Symptomatic varicose veins of both lower extremities (ICD-10 - I83.893) February, Other Bleeding varicose veins Based on his ultrasound examination this patient does not require extensive intervention for his venous disease. We should be able to treat the localized area of bleeding with sclerotherapy to prevent future episodes. He understands and is agreement with that plan. He already has graded compression stockings. Yibailin Other 05-02-2023 Evaluation note* Encounter Date Diagnosis Assessment Notes Treatment Notes Treatment Clinical Notes February, Varicose veins of bilateral lower extremities with other complications (ICD-10 - I83.893) February, Other Varicose veins with bleeding He likely has significant venous valvular dysfunction from his prior deep vein thrombosis in the left leg. There are significant varicosities with mild edema and early skin changes he will undergo bilateral full functional venous duplex examination to better define his current venous anatomy and then we will make decisions about how to prevent recurrent episodes of bleeding. He understands and agrees with that plan. In the meantime he will continue with skin care to keep the skin on his legs softer and less likely to break open. He will continue with light compression. Yibailin Other 04-26-2023 NotePROCEDURE: XR CHEST 2 V DATE: 02/04/2023 9:05 AM CDT COMPARISONS: 03/24/2022 CLINICAL INDICATION: 62 years Male Primary malignant neoplasm of prostate Requisition states: History renal cell carcinoma FINDINGS: The cardiomediastinal silhouette and pulmonary vasculature are within normal limits. The lungs are clear. There is no evidence of pleural effusion or pneumothorax. IMPRESSION: Chest radiograph is within normal limits. Electronically authenticated by: RACHAEL SIU Date: 2023-02-04 10:31[facility]02-01-2023 NoteHNO ID: [id number] Author: Nathen Corbin MD Service: ? Author Type: Physician Type: Progress Notes Filed: 11/12/2022 10:21 AM Note Text: Radiation Oncology - Follow Up Note PATIENT NAME: Jose Cobos PATIENT DIAGNOSIS: Prostate adenocarcinoma, initial PSA 3.69, biopsy Shelly score 3 + 4 = 7 (grade group 2), clinical stage T1c, N0, M0, stage IIB [T1-T2, N0, M0, PSA <20, GG 2] (AJCC 8th ed.), s/p TRUS Random biopsy. RADIATION SUMMARY:DATES OF TREATMENT: 08/28/21-10/08/21 AREA TREATED: Prostate and SV DELIVERED DOSE: Prostate and SV: 7,000 cGy in 28 fractions, 2 Arcs, IMRT, 10MV with daily CBCT TOTAL: 7,000 cGy in 28 fractions ELAPSED TIME: 41 days. INTERVAL HISTORY: Doing well denies any new problems or concerns. He has had several episodes of bright red blood on toilet paper with bowel movement. Denies rectal pain. Usually after firm bowel movement. He did have colonoscopy last summer. PSA HISTORY: PSA (ng/mL) Date Value 07/26/2021 3.69 PSA. (no units) Date Value 11/03/2022 <0.13 05/12/2022 <0.13 11/06/2021 0.05 ALLERGIES No Known Allergies escitalopram oxalate (LEXAPRO) 5 mg tablet irbesartan (AVAPRO) 150 mg tablet tamsulosin (FLOMAX) 0.4 mg Take 0.4 mg by mouth twice daily. REVIEW OF SYSTEMS: D/N = 4-5 Hematuria: none Dysuria: none Incontinence: none Urgency: mild Catheter use: none Medications to aid urination: flomax - Total AUA Score: 7 Bowel movement frequency: 1/day Bowel movement quality: normal Blood per rectum: none PHYSICAL EXAM: BP 126/82 Pulse 79 Temp 36.6 ?C (97.9 ?F) Resp 16 Wt 108.4 kg (239 lb) SpO2 97% BMI 29.41 kg/m? KPS: 100 General appearance: Alert and oriented. No acute distress. Abdomen: Normal abdominal exam, Abdomen soft, non-tender. No masses, organomegaly. Rectal exam def Extremities: No deformities, edema, skin discoloration, clubbing or cyanosis. Lymph Nodes: No cervical lymphadenopathy, No supraclavicular lymphadenopathy, No axillary lymphadenopathy. Skin: Skin color, texture, turgor normal, no suspicious rashes or lesions. ASSESSMENT/PLAN: 1. Prostate adenocarcinoma, initial PSA 3.69, biopsy Shelly score 3 + 4 = 7 (grade group 2), clinical stage T1c, N0, M0, stage IIB [T1-T2, N0, M0, PSA <20, GG 2] (AJCC 8th ed.), s/p TRUS Random biopsy. Doing well with undetectable PSA. He has had some very minimal rectal bleeding likely posttreatment related. He has had previous colonoscopy within the last year that was unremarkable. Should this continue consider reevaluation. Should it worsen consider cortisone suppositories. 2. Renal cell carcinoma status post left radical nephrectomy December 2020. Doing well. Has follow-up with urology. Signed by: Nathen Corbin MD cc: Fernando Patterson II, MD [address] [place] [address] [facility]02-01-2023 Nurse Note* Janette Mcwilliams LPN - 11/12/2022 10:00 AM EST AUA=7 documented in this encounterPrem[facility] History of Present illness Narrative* Nathen Corbin MD - 11/12/2022 9:57 AM EST Radiation Oncology - Follow Up Note PATIENT NAME: Jose Cobos PATIENT DIAGNOSIS: Prostate adenocarcinoma, initial PSA 3.69, biopsy Shelly score 3 + 4 = 7 (grade group 2), clinical stage T1c, N0, M0, stage IIB [T1-T2, N0, M0, PSA <20, GG 2] (AJCC 8th ed.), s/p TRUS Random biopsy. RADIATION SUMMARY:DATES OF TREATMENT: 08/28/21-10/08/21 AREA TREATED: Prostate and SV DELIVERED DOSE: Prostate and SV: 7,000 cGy in 28 fractions, 2 Arcs, IMRT, 10MV with daily CBCT TOTAL: 7,000 cGy in 28 fractions ELAPSED TIME: 41 days. INTERVAL HISTORY: Doing well denies any new problems or concerns. He has had several episodes of bright red blood on toilet paper with bowel movement. Denies rectal pain. Usually after firm bowel movement. He did have colonoscopy last summer. PSA HISTORY: PSA (ng/mL) Date Value 07/26/2021 3.69 PSA. (no units) Date Value 11/03/2022 <0.13 05/12/2022 <0.13 11/06/2021 0.05 ALLERGIES No Known Allergies escitalopram oxalate (LEXAPRO) 5 mg tablet irbesartan (AVAPRO) 150 mg tablet tamsulosin (FLOMAX) 0.4 mg Take 0.4 mg by mouth twice daily. REVIEW OF SYSTEMS: D/N = 4-5/ Hematuria: none Dysuria: none Incontinence: none Urgency: mild Catheter use: none Medications to aid urination: flomax - Total AUA Score: 7 Bowel movement frequency: 1/day Bowel movement quality: normal Blood per rectum: none PHYSICAL EXAM: BP 126/82 Pulse 79 Temp 36.6 C (97.9 F) Resp 16 Wt 108.4 kg (239 lb) SpO2 97% BMI 29.41kg/m KPS: 100 General appearance: Alert and oriented. No acute distress. Abdomen: Normal abdominal exam, Abdomen soft, non-tender. No masses, organomegaly. Rectal exam def Extremities: No deformities, edema, skin discoloration, clubbing or cyanosis. Lymph Nodes: No cervical lymphadenopathy, No supraclavicular lymphadenopathy, No axillary lymphadenopathy. Skin: Skin color, texture, turgor normal, no suspicious rashes or lesions. ASSESSMENT/PLAN: 1. Prostate adenocarcinoma, initial PSA 3.69, biopsy Shelly score 3 + 4 = 7 (grade group 2), clinical stage T1c, N0, M0, stage IIB [T1-T2, N0, M0, PSA <20, GG 2] (AJCC 8th ed.), s/p TRUS Random biopsy. Doing well with undetectable PSA. He has had some very minimal rectal bleeding likely posttreatmentrelated. He has had previous colonoscopy within the last year that was unremarkable. Should this continue consider reevaluation. Should it worsen consider cortisone suppositories. 2. Renal cell carcinoma status post left radical nephrectomy December 2020. Doing well. Has follow-up with urology. Signed by: Nathen Corbin MD cc: Fernando Patterson II, MD [address] [place] [address] documented in this encounterPrem[facility]10-[facility]22 Hospital Discharge instructions Patient Education 07/25/2022 09:00:18 Transurethral Resection of the Prostate Transurethral Resection of the Prostate Transurethral resection of the prostate (TURP) is the removal (resection) of part of the gland thatproduces semen (prostate gland). This procedure is done to treat benign prostatic hyperplasia (BPH). BPH is an abnormal, noncancerous (benign) increase in the number of cells that make up the prostate tissue. BPH causes the prostate to get bigger. The enlarged prostate can push against or block thetube that drains urine from the bladder out of the body (urethra). BPH can affect normal urine flowby causing bladder infections, difficulty controlling bladder function, and difficulty emptying thebladder. The goal of TURP is to remove enough prostate tissue to allow for a normal flow of urine. The procedure will allow you to empty your bladder more completely when you urinate so that you can urinate less often. In a transurethral resection, a thin telescope with a light, a tiny camera, and an electric cuttingedge (resectoscope) is passed through the urethra and into the prostate. The opening of the urethrais at the end of the penis. Tell a health care provider about: Any allergies you have. All medicines you are taking, including vitamins, herbs, eye drops, creams, and uitl-zya-lmwcewh medicines. Any problems you or family members have had with anesthetic medicines. Any blood disorders you have. Any surgeries you have had. Any medical conditions you have. Any prostate infections you have had. What are the risks? Generally, this is a safe procedure. However, problems may occur, including: Infection. Bleeding. Allergic reactions to medicines. Damage to other structures or organs, such as: ?The urethra. ?The bladder. ?Muscles that surround the prostate. Difficulty getting an erection. Inability to control when you urinate (incontinence). Scarring, which may cause problems with urine flow. What happens before the procedure? Medicines Ask your health care provider about: Changing or stopping your regular medicines. This is especially important if you are taking diabetes medicines or blood thinners. Taking medicines such as aspirin and ibuprofen. These medicines can thin your blood. Do not take these medicines unless your health care provider tells you to take them. Taking msmn-oxv-dkcwvpc medicines, vitamins, herbs, and supplements. Eating and drinking Follow instructions from your health care provider about eating and drinking, which may include: 8 hours before the procedure stop eating heavy meals or foods, such as meat, fried foods, or fatty foods. 6 hours before the procedure stop eating light meals or foods, such as toast or cereal. 6 hours before the procedure stop drinking milk or drinks that contain milk. 2 hours before the procedure stop drinking clear liquids. Staying hydrated Follow instructions from your health care provider about hydration, which may include: Up to 2 hours before the procedure you may continue to drink clear liquids, such as water, clear fruit juice, black coffee, and plain tea. General instructions You may have a physical exam. You may have a blood or urine sample taken. Ask your health care provider what steps will be taken to help prevent infection. These may include: ?Washing skin with a germ-killing soap. ?Taking antibiotic medicine. Plan to have someone take you home from the hospital or clinic. You may not be able to drive for upto 10 days after your procedure. Plan to have a responsible adult care for you for at least 24 hours after you leave the hospital orclinic. This is important. What happens during the procedure? An IV will be inserted into one of your veins. You will be given one or more of the following: ?A medicine to help you relax (sedative). ?A medicine to make you fall asleep (general anesthetic). ?A medicine that is injected into your spine to numb the area below and slightly above the injection site (spinal anesthetic). Your legs will be placed in foot rests (stirrups) so that your legs are apart and your knees are bent. The resectoscope will be passed through your urethra to your prostate. Parts of your prostate will be resected using the cutting edge of the resectoscope. The resectoscope will be removed. A small, thin tube (catheter) will be passed through your urethra and into your bladder. The catheter will drain urine into a bag outside of your body. ?Fluid may be passed through the catheter to keep the catheter open. The procedure may vary among health care providers and hospitals. What happens after the procedure? Your blood pressure, heart rate, breathing rate, and blood oxygen level will be monitored until youleave the hospital or clinic. You may continue to receive fluids and medicines through an IV. You may have some pain. Pain medicine will be available to help you. You will have a catheter draining your urine. ?You may have blood in your urine. Your catheter may be kept in until your urine is clear. ?Your urinary drainage will be monitored. If necessary, your bladder may be rinsed out (irrigated) through your catheter. You will be encouraged to walk around as soon as possible. You may have to wear compression stockings. These stockings help prevent blood clots and reduce swelling in your legs. Do not drive for 24 hours if you were given a sedative during your procedure. Summary Transurethral resection of the prostate (TURP) is the removal (resection) of part of the gland thatproduces semen (prostate gland). The goal of this procedure is to remove enough prostate tissue to allow for a normal flow of urine. Follow instructions from your health care provider about taking medicines and about eating and drinking before the procedure. This information is not intended to replace advice given to you by your health care provider. Make sure you discuss any questions you have with your health care provider. Document Released: 09/28/2006 Document Revised: 01/18/2020 Document Reviewed: 06/29/2019 [employer] Patient Education 2020 [employer] Follow Up Care 01/15/2022 15:51:46 With:HARVEY FRASER, Hal Astorga, URL Address: [facility] [address], [place] [address]- [phone] When:Within 6 Month(s) Comments:w/ PSA, BUN/Creatinine, CXR [facility] 08-02-2022 History of Present illness Narrative* G Cory Corbin MD - 05/13/2022 3:34 PM EDT Radiation Oncology - Follow Up Note PATIENT NAME: Jose Cobos PATIENT DIAGNOSIS: Prostate adenocarcinoma, initial PSA 3.69, biopsy Bernard score 3 + 4 = 7 (grade group 2), clinical stage T1c, N0, M0, stage IIB [T1-T2, N0, M0, PSA <20, GG 2] (AJCC 8th ed.), s/p TRUS Random biopsy. RADIATION SUMMARY:DATES OF TREATMENT: 08/28/21-10/08/21 AREA TREATED: Prostate and SV DELIVERED DOSE: Prostate and SV: 7,000 cGy in 28 fractions, 2 Arcs, IMRT, 10MV with daily CBCT TOTAL: 7,000 cGy in 28 fractions ELAPSED TIME: 41 days. INTERVAL HISTORY: Doing well denies any new problems or concerns. He is now retired. Staying very active. PSA HISTORY: PSA (ng/mL) Date Value 07/26/2021 3.69 PSA. (no units) Date Value 05/12/2022 <0.13 11/06/2021 0.05 ALLERGIES No Known Allergies escitalopram oxalate (LEXAPRO) 5 mg tablet irbesartan (AVAPRO) 150 mg tablet tamsulosin (FLOMAX) 0.4 mg Take 0.4 mg by mouth twice daily. REVIEW OF SYSTEMS: D/N = 4-5/ Hematuria: none Dysuria: none Incontinence: none Urgency: mild Catheter use: none Medications to aid urination: flomax - Total AUA Score: 11 Bowel movement frequency: 1/day Bowel movement quality: normal Blood per rectum: none PHYSICAL EXAM: BP 119/81 Pulse 62 Temp 36.3 C (97.3 F) Resp 16 Wt 108.9 kg (240 lb) SpO2 100% BMI 29.53 kg/m KPS: 100 General appearance: Alert and oriented. No acute distress. Abdomen: Normal abdominal exam, Abdomen soft, non-tender. No masses, organomegaly. Rectal exam def Extremities: No deformities, edema, skin discoloration, clubbing or cyanosis. Lymph Nodes: No cervical lymphadenopathy, No supraclavicular lymphadenopathy, No axillary lymphadenopathy. Skin: Skin color, texture, turgor normal, no suspicious rashes or lesions. ASSESSMENT/PLAN: 1. Prostate adenocarcinoma, initial PSA 3.69, biopsy Shelly score 3 + 4 = 7 (grade group 2), clinical stage T1c, N0, M0, stage IIB [T1-T2, N0, M0, PSA <20, GG 2] (AJCC 8th ed.), s/p TRUS Random biopsy. Doing well with undetectable PSA. No significant posttreatment related problems. 2. Renal cell carcinoma status post left radical nephrectomy December 2020. Doing well. Has follow-up with urology. Signed by: Nathen Corbin MD cc: Fernando Patterson II, MD [address] [place] [address] documented in this encounterPrem[facility]08-02-[facility]22 Nurse Note* Janette Mcwilliams LPN - 05/13/2022 3:30 PM EDT AUA= 11 documented in this encounterPremier Health [facility]08-01-2022 Miscellaneous Notes* Telephone Encounter - Janette Mcwilliams LPN - 05/12/2022 11:55 AM EDT Patient's called stating Delvin will go to [facility] today to have his PSA drawn. Order was faxed to [facility]. Don: Will you please cancel Delvin's lab appt here? Thanks Janette Mcwilliams LPN * Telephone Encounter - Don Su - 05/12/2022 11:20 AM EDT Patient has been added to Epic. Don Su * Telephone Encounter - Ana Maria Soliman RN - 05/12/2022 11:07 AM EDT Call placed to pt due to not having PSA yet for RV. Pt wants to have day of visit instead of going to [facility]. He will arrive 15 min prior to visit to have PSA done in lab. PSS- please add to main lab schedule prior to RV 05/13. Ana Maria Soliman RN [facility] Hospital Discharge instructions Patient Education 01/15/2022 15:23:21 Brachytherapy for Prostate Cancer Brachytherapy for Prostate Cancer Brachytherapy for prostate cancer is radiation treatment that is placed inside of the prostate (prostate gland). There are several types of brachytherapy: Low-dose rate (LDR) therapy. This may involve temporary implants or permanent radioactive seed or pellet implants. The radiation does not travel far from the prostate, which means that healthy, noncancerous tissues around the prostate receive only a small dose of radiation. This helps to protect those tissues from injury. This type of treatment may be followed by a course of external beam radiation. ?Temporary low-dose implants are left in the prostate for 1 7 days. The implants are needles, applicators, or thin, plastic tubes (catheters) that contain radioactive material. You will need to stay in the hospital while the implant is in place. ?Permanent low-dose implants (seeds or pellets) are injected into the prostate, and they work for up to one year after they are inserted. They are left in place and are not removed. High-dose rate (HDR) therapy. This is given through needles, applicators, or catheters that containradioactive material. The tubes are removed after treatment, and no radiation is left in the prostate. This type of treatment may be followed by a course of external beam radiation. Tell a health care provider about: Any allergies you have. All medicines you are taking, including vitamins, herbs, eye drops, creams, and [id number] medicines. Any problems you or family members have had with anesthetic medicines. Any surgeries you have had. Any blood disorders you have. Any medical conditions you have. What are the risks? Generally, this is a safe procedure. However, problems may occur, including: Inflammation of the rectum. Problems getting or keeping an erection (erectile dysfunction). Trouble urinating. Diarrhea. Bleeding. Loss of bowel control. What happens before the procedure? Staying hydrated Follow instructions from your health care provider about hydration, which may include: Up to 2 hours before the procedure you may continue to drink clear liquids, such as water, clear fruit juice, black coffee, and plain tea. Eating and drinking Follow instructions from your health care provider about eating and drinking, which may include: 8 hours before the procedure stop eating heavy meals or foods such as meat, fried foods, or fatty foods. 6 hours before the procedure stop eating light meals or foods, such as toast or cereal. 6 hours before the procedure stop drinking milk or drinks that contain milk. 2 hours before the procedure stop drinking clear liquids. Medicines Ask your health care provider about: ?Changing or stopping your regular medicines. This is especially important if you are taking diabetes medicines or blood thinners. ?Taking medicines such as aspirin and ibuprofen. These medicines can thin your blood. Do not take these medicines before your procedure if your health care provider instructs you not to. You may be given antibiotic medicine to help prevent infection. General instructions Plan to have someone take you home from the hospital or clinic. If you will be going home right after the procedure, plan to have someone with you for 24 hours. You may have imaging tests done, including an ultrasound, CT scan, or MRI. You may have blood tests done. You may have a test to check the electrical signals in your heart (electrocardiogram). You may need to take medicine to clean out your bowel (bowel prep). What happens during the procedure? To lower your risk of infection: ?Your health care team will wash or sanitize their hands. ?Your skin will be washed with soap. ?Hair may be removed from the surgical area. An IV will be inserted into one of your veins. You will be given one or more of the following: ?A medicine to help you relax (sedative). ?A medicine to numb the area (local anesthetic). ?A medicine to make you fall asleep (general anesthetic). You may have a thin, plastic tube (catheter) inserted to drain your bladder. If you are receiving brachytherapy with implants: ?A needle, applicator, or catheter will be inserted into the prostate. It will be inserted through a body cavity, such as the rectum, or through the tissue between the testicles and the anus (perineum). ?An X-ray, ultrasound, MRI, or CT scan will be used to guide the catheter or applicator toward the prostate. ?Radioactive seeds, wires, or ribbons will be fed through the catheter or applicator. ?If the high-dose method is used: ?The radioactive wires or ribbons will be left in for a few minutes and then removed. ?Once the treatment is finished, the catheter or applicator will be removed. ?If the low-dose method is used, the implant will stay in place for 1 7 days. ?You will remain in the hospital while the implant is in place. ?Once the treatment is finished, the radioactive material and catheter will be removed. If you are receiving permanent, low-dose brachytherapy: ?Small, radioactive seeds or pellets will be injected into your prostate. This may be done through a catheter, needle, or applicator. ?The catheter or applicator will be removed, leaving the seeds in the prostate. The procedure may vary among health care providers and hospitals. What happens after the procedure? Your blood pressure, heart rate, breathing rate, and blood oxygen level will be monitored until themedicines you were given have worn off. Do not drive for 24 hours if you were given a sedative. Summary Brachytherapy for prostate cancer is radiation treatment placed inside of the prostate (prostate gland). There are several types of brachytherapy for prostate cancer, including low-dose temporary treatment, low-dose permanent treatment, and high-dose temporary treatment. Temporary low-dose implants are left in the prostate for 1 7 days. Permanent low-dose implants are injected into the prostate and left in place. They work for up to one year after they are inserted. Permanent high-dose therapy is given through tubes that contain radioactive material. The tubes areremoved after treatment, and no radiation is left in the prostate. This information is not intended to replace advice given to you by your health care provider. Make sure you discuss any questions you have with your health care provider. Document Released: 03/08/2007 Document Revised: 09/10/2018 Document Reviewed: 10/07/2017 [employer] Patient Education 2020 [employer]. Follow Up Care 01/03/2022 13:29:32 With:Hal BEAULIEU MD, URL Address: [facility] [address], [place] [address]- Business (1) When: Unknown [facility] Evaluation + Plan note Future Appointments Appointment Date:07/25/2022 08:00:00 AM Scheduled Provider:Hal BEAULIEU MD Location:[facility] Appointment Type:URO Office Visit Diagnostic Tests Pending * PSA Total 01/15/22 * BUN 01/15/22 * Creatinine 01/15/22 [facility] Evaluation + Plan note Future Appointments Appointment Date:02/06/2023 08:45:00 AM Scheduled Provider:Hal BEAULIEU MD Location:[facility] Appointment Type:URO Office Visit Diagnostic Tests Pending * PSA Total 07/25/22 * BUN 07/25/22 * Creatinine 07/25/22 [facility] evaluation note* Diagnosis Malignant neoplasm of prostate (HCC)- Primary Malignant neoplasm of prostate documented in this encounter [facility] Diagnosis Malignant neoplasm of prostate (HCC)- Primary Malignant neoplasm of prostate documented in this encounter [facility] [employer] Other History general Narrative - Reported* Type Description Date Medical History Chronic sinusitis, unspecified l ocation Medical History varicose veins Medical History [ ] Surgical History tonsillectomy 1964 Surgical History HERNIA REPAIR (UMBILICAL) 2018 Surgical History kidney cancer 2020 Surgical History [ ] Hospitalization History see above [place] Other Hospital course Narrative No data available for this section [facility] note No data available for this section [facility] Purpose Family History No Family History Records FoundNo Family History Records FoundNo Family History Records FoundNo Family History Records FoundNo Family History Records FoundNo Family History Records Found Advance Directives No Advanced Directives Records FoundNo Advanced Directives Records FoundNo Advanced Directives Records FoundNo Advanced Directives Records FoundNo Advanced Directives Records FoundNo Advanced Directives Records Found Additional Source Comments (unrecognized sect ion and content) No Status Records FoundNo Status Records FoundNo Status Records FoundNo Status Records FoundNo Status Records FoundNo Status Records Found INFORMATION SOURCE (unrecogn ized section and content) DATE CREATED AUTHOR 07/16/2021 [facility] DATE CREATED AUTHOR AUTHOR'S ORGANIZ ATION 10/07/2021 [facility] Special[facility] DATE CREATED AUTHOR AUTHOR'S ORGANIZ ATION 02/07/2023 [facility] DATE CREATED AUTHOR AUTHOR'S ORGANIZ ATION 03/21/2023 [facility] DATE CREATED AUTHOR AUTHOR'S ORGANIZ ATION 05/14/2023 [facility] DATE CREATED AUTHOR AUTHOR'S ORGANIZ ATION 09/26/2023 [facility] Source Comments (unrecognize d section and content) In the event this informatio n is protected by the Federal Confidentiality of Alcohol and Drug Abuse Patient Records regulations: The Federal rules restrict any use of the information to criminally investigate or prosecute any alcohol or drug abuse patient.[facility] CenterIn the event this information is protected by the Federal Confidentiality of Alcohol and Drug Abuse Patient Records regulations: The Federal rules restrict any use of the information to criminally investigate or prosecute any alcohol or drug abuse patient.[facility] CenterIn the event this information is protected by the Federal Confidentiality of Alcohol and Drug Abuse Patient Records regulations: The Federal rules restrict any use of the information to criminally investigate or prosecute any alcohol or drug abuse patient.[facility] Reason for Visit (unrecogniz ed section and content) Reason Comments Future Appointment Reason Comments Prostate Cancer Specialty Diagnoses / Procedures Referred By Contac t Referred To Contact Radiation Oncology / RADIATION ONCOLOGY Diagnoses 6 Month Follow Up R/S Survivorship D/T work schedule Procedures OFFICE/OUTPATIENT ESTABLISHED MOD MDM 30-39 MIN EST PATIENT Nathen Corbin MD [address] [place] [address] [place] [address] Nathen Corbin MD [address] [place] [address] [place] [address] Referral ID Status Reason Start Date Expiration Date Visits Re quested Visits Authorized [id number] Closed 10/12/2021 10/11/2022 1 1 Specialty Diagnoses / Procedures Referred By Contac t Referred To Contact Radiation Oncology / RADIATION ONCOLOGY Diagnoses 6 Month Follow Up Procedures OFFICE/OUTPATIENT ESTABLISHED MOD MDM 30-39 MIN EST PATIENT Nathen Corbin MD [address] [place] [address] [place] [address] Nathen Corbin MD [address] [place] [address] [place] [address] Referral ID Status Reason Start Date Expiration Date Visits Re quested Visits Authorized [id number] Closed 11/12/2022 10/11/2023 1 1 Care Teams (unrecognized sec tion and content) Paraprofessional Aide Relationship Specialty Start Date End Date Fernando Patterson Biju KEITH [address] [facility] [address] [place] [address] PCP - General Internal Medicine 07/19/21 Paraprofessional Aide Relationship Specialty Start Date End Date Clark Pattersonnick Ivy II [address] [facility] [address] [place] [address] PCP - General Internal Medicine 07/19/21 Paraprofessional Aide Relationship Specialty Start Date End Date Clark Pattersonnick Ivy II [address] [facility] [address] [place] [address] PCP - General Internal Medicine 07/19/21 FOR RECORDS PERTAINING TO PATIENTS WHO ARE OR HAVE BEEN ENROLLED IN A CHEMICAL DEPENDENCY/SUBSTANCEABUSE PROGRAM, SOME INFORMATION MAY BE OMITTED. This clinical summary was aggregated from multiple sources. Caution should be exercised in using it in the provision of clinical care. This summary normalizes information from multiple sources, and as a consequence, information in this document may materially change the coding, format and clinical context of patient data. In addition, data may be omitted in some cases. CLINICAL DECISIONS SHOULD BE BASED ON THE PRIMARY CLINICAL RECORDS. [employer] [facility]. provides no warranty or guarantee of the accuracy or completeness of information in this document.
== END 2023-08-24 07:03 | disposition home or self-care (01) ==
LOC: LAB 07:02
PROVIDERS: PCP Internal Medicine; Visit Provider Urology
DX: N40.1 Benign prostatic hyperplasia with lower urinary tract symptoms (principal); Z85.528 Personal history of other malignant neoplasm of kidney; R35.1 Nocturia; R31.21 Asymptomatic microscopic hematuria; C64.9 Malignant neoplasm of unspecified kidney, except renal pelvis
CPT/HCPCS: 36415; 74176; 80048; 84153

== ENCOUNTER 2025-09-25 13:01 | Outpatient (OUT) | payer OTHER, SELFPAY ==
[2025-09-25 14:19] LABS: Prostate Specific Antigen Dx <0.13 ng/mL (<=4.00)
== END 2025-09-25 13:02 | disposition home or self-care (01) ==
LOC: LAB 13:06
PROVIDERS: PCP Internal Medicine; Visit Provider Urology
DX: Z85.46 Personal history of malignant neoplasm of prostate (principal)
CPT/HCPCS: 36415; 84153